=== PATIENT | female | born 1960 | race Caucasian/White ===

== ENCOUNTER 2023-01-17 02:29 | Outpatient (CLI) | payer BC, SELFPAY ==
[2023-01-17 16:48] LABS: Abs Immature Grans 0.03 10^3/uL (0.0-0.06); Absolute Basophil Count 0.04 10^3/uL (0.0-0.2); Absolute Lymphocyte Count 2.24 10^3/uL (1.2-3.4); Absolute Monocyte Count 0.64 10^3/uL (0.1-0.8); Absolute Neutrophil Count 3.43 10^3/uL (1.2-6.7); Basophils % 0.6; HCT 40.9 % (36.0-46.0); HGB 13.3 g/dL (11.2-15.7); Immature Grans % 0.5; MCH 28.2 pg (27.0-33.0); MCHC 32.5 % (32.0-36.0); MCV 87 fL (80-95); MPV 9.1 fL (8.0-11.0); Monocytes % 9.7; Neutrophils % 52.2; Platelet Count 344 10^3/uL (130-400); RBC 4.72 10^6/uL (3.93-5.22); RDW 13.2 % (11.7-14.6); RDW-SD 42.2 fL; WBC 6.58 10^3/uL (4.4-10.8)
[2023-01-17 17:26] LABS: Hemoglobin A1C 5.8 % (<5.7)
[2023-01-17 18:41] LABS: ALT 30 U/L (14-59); AST 21 U/L (15-37); Albumin 3.9 g/dL (3.4-5.0); Alkaline Phosphatase 112 U/L (46-116); Anion Gap 7.6 mmol/L (3-11); BUN 20 mg/dL (7-18); Bilirubin, Total 0.2 mg/dL (0.2-1.0); CO2 28.4 mmol/L (21.0-32.0); CREATININE 0.8 mg/dL (0.55-1.02); Calcium 9.2 mg/dL (8.5-10.1); Calculated LDL 90 mg/dL (<100); Chloride 106 mmol/L (98-107); Cholesterol 195 mg/dL (<200); Estimated GFR 83.26 (mL/min/1.73m2); Glucose 99 mg/dL (74-106); HDL Cholesterol 60 mg/dL (40-60); Potassium 4.4 mmol/L (3.5-5.1); Sodium 142 mmol/L (136-145); TSH (W/Ref FT4) 2.52 uIU/mL (0.36-3.74); Total Protein 6.8 g/dL (6.4-8.2); Triglyceride 226 mg/dL (<150)
== END 2023-01-17 02:30 | disposition home or self-care (01) ==
PROVIDERS: PCP Nurse Practitioner Family; Visit Provider Nurse Practitioner Family
DX: E66.01 Morbid (severe) obesity due to excess calories (principal); R10.9 Unspecified abdominal pain
CPT/HCPCS: 36415; 80053; 80061; 83036; 84443; 85025

== ENCOUNTER 2023-02-15 01:59 | Outpatient (CLI) | payer BC, SELFPAY ==
--- NOTE | 2023-02-15 06:30 | DI.RAD_ITS ---
Exam(s) XR KNEE LT 3V AP,LAT,LILO EXAM: XR KNEE LT 3V AP,LAT,LILO CLINICAL HISTORY: left knee pain,m25.562. TECHNIQUE: 2D digital imaging was performed. Three views. COMPARISON: No exams were available for comparison FINDINGS: BONES: No acute fracture is present. No bony destructive lesion is seen. JOINTS: Moderate narrowing of the medial femoral tibial joint space and mild to moderate periarticula r spurring. Spurring and joint space narrowing also seen of the patellofemoral joint. No joint effu steven is seen. SOFT TISSUE: Normal. IMPRESSION: Moderate degenerative changes of the medial femoral tibial joint and patellofemoral joint. DATA REPOSITORY: RADIATION DOSE DELIVERED:
--- NOTE | 2023-02-15 06:43 | DI.CT_ITS ---
Exam(s) CT ABDOMEN PELVIS W EXAM: CT ABDOMEN PELVIS W CLINICAL HISTORY: Abd pain with hx of lap gastric banding,r10.9,z98.84. TECHNIQUE: Imaging Protocol: Axial computed tomography images with coronal and sagittal reformatted images were created and reviewed CONTRAST MATERIAL: Intravenous: Omnipaque 350 Contrast volume:100 ml Oral: yes / no COMPARISON: No exams were available for comparison FINDINGS: ABDOMEN: Lung Bases: Normal where visualized. Liver: Normal density. Small cyst superior right lobe. No suspicious measurable mass. Gallbladder and biliary tract: No radiodense calculus or dilation. Pancreas: Normal density, no abnormal calcifications or inflammatory process. Spleen: Normal. Kidneys: Normal size, contour and axis. No radiodense stones or obstructive uropathy. Small left kristel al cysts. No further follow-up recommended. No suspicious masses seen. Stomach and small bowel: Sma ll diverticulum of the descending duodenum. Stomach unremarkable. Adrenal glands: No masses seen. Abdominal Aorta: Abdominal portion non-dilated. Soft tissues: 6.5 x 3 by 6.5 cm fatty containing hernia in the midline anterior abdominal wall above the level of the umbilicus. 2.3 by 3.2 centimeter defect in the abdominal wall. PELVIS: Bladder: No gross wall thickening. No calculi.No focal mass. Large bowel: No obstruction. No bowel wall thickening. Appendix normal. Normal quantity of stool. Peritoneal cavity: No ascites, collection or mesenteric inflammatory response. Bones: Posterior fusion hardware L5-S1. Hemangioma L3. Degenerative disc changes L2-3 and L4-5. Reproductive organs: Within normal limits. Lymph nodes: Unremarkable. Impression: Fatty containing midline upper abdominal wall hernia. RADIATION DOSE DELIVERED: 1,323.49mGy.cm Total DLP DATA REPOSITORY: All CT scans at this facility are submitted to the National Radiology Data Registry (NRDR) Dose Index Registry (DIR) with the [employer] ([employer]). RADIATION OPTIMIZATION: All CT scans at this facility use at least one of these dose optimization te chniques: automated exposure control; mA and/or kV adjustment per patient size (includes targeted exa ms where dose is matched to clinical indication); or iterative reconstruction.
[2023-02-15] MEDS: Barium Sulfate 2% W/V-Berry Smoothie 450 ML BTL PO (08:17)
[2023-02-15] MEDS: Omnipaque 350 MG/ML 100 ML BTL IJ (10:07)
[2023-02-15] MEDS: Normal Saline - Diluent 50 ML VIAL IJ (10:07)
== END 2023-02-15 02:19 ==
LOC: DI 01:59
PROVIDERS: PCP Nurse Practitioner Family; Visit Provider Nurse Practitioner Family
DX: R10.9 Unspecified abdominal pain (principal); Z98.84 Bariatric surgery status; M25.562 Pain in left knee
CPT/HCPCS: 73562; 74177; J3490

== ENCOUNTER 2023-04-18 01:35 | Outpatient (CLI) | payer BC, SELFPAY ==
--- NOTE | 2023-04-18 06:45 | DI.MAMMO_ITS ---
Exam(s) MAMMO SCREENING EXAM: MAMMO SCREENING CLINICAL HISTORY: screening,z12.39 TECHNIQUE: Mammograms were interpreted according to the usual protocol including computer analysis w [employer] CAD system, tomosynthesis and C-view imaging. COMPARISON: 2018 through 2021 from [facility] FINDINGS: The breasts are composed of mainly fatty density , Breast Density category A. No suspicious masses or suspicious microcalcifications are seen. No skin thickening or abnormal axillary lymph nodes are seen. There has been no significant change from prior exams. IMPRESSION: BI-RADS Category 1, Negative mammogram Yearly screening mammography is recommended. Breast Density - Category A, fatty density. A negative radiographic report should not delay biopsy if a dominant or clinically suspicious mass is present. Up to ten percent of cancers are not identified on mammography. A negative report may reinforce clinical impression. Adenosis and dense breasts may obscure an underlying neoplasm. False positive reports average 6 to 10%. Patient will receive a letter notifying them of these results.
== END 2023-04-18 01:55 ==
LOC: DI 01:35
PROVIDERS: PCP Nurse Practitioner Family; Visit Provider Nurse Practitioner Family
DX: Z12.31 Encounter for screening mammogram for malignant neoplasm of breast (principal)
CPT/HCPCS: 77063; 77067

== ENCOUNTER 2023-08-04 10:15 | Outpatient (CLI) | payer BC, SELFPAY ==
--- NOTE | 2023-08-04 10:57 | DI.RAD_ITS ---
Exam(s) XR STANDING ALIGNMENT EXAM: XR STANDING ALIGNMENT CLINICAL HISTORY: PRE OP L TKA. TECHNIQUE: 2D digital imaging was performed. Standing AP views were performed from the pelvis throu gh the ankles. COMPARISON: CR XR KNEE LT 3V AP,LAT,LILO from 02/15/2023 FINDINGS: BONES: No acute fracture is present. No bony destructive lesion is seen. Leg length discrepancy: JOINTS: Knees: The left knee shows moderate joint space narrowing. Mild periarticular spurring. M ild joint space narrowing of the medial femoral tibial joint of the right knee. The ankle joints are unremarkable. The hip joints show mild degenerative changes. SOFT TISSUE: Skin calcifications bilateral lower legs, right greater than left. IMPRESSION: Degenerative changes of the left knee. No significant leg length discrepancy. DATA REPOSITORY: RADIATION DOSE DELIVERED:
== END 2023-08-04 10:16 | disposition home or self-care (01) ==
LOC: DIORS 10:16
PROVIDERS: PCP Nurse Practitioner Family; Referring Provider Nurse Practitioner Family; Visit Provider Student in an Organized Health Care Education/Training Program
DX: M17.12 Unilateral primary osteoarthritis, left knee (principal)
CPT/HCPCS: 77073

== ENCOUNTER 2023-08-04 19:09 | Outpatient (CLI) | payer BC, SELFPAY ==
[2023-08-04 12:17] LABS: HGB 13.9 g/dL (11.2-15.7); MCH 27.5 pg (27.0-33.0); MCHC 32.3 % (32.0-36.0); MCV 85 fL (80-95); MPV 9.1 fL (8.0-11.0); Platelet Count 342 10^3/uL (130-400); RBC 5.05 10^6/uL (3.93-5.22); RDW 13.2 % (11.7-14.6); RDW-SD 41.1 fL; WBC 6.93 10^3/uL (4.4-10.8)
[2023-08-04 12:33] LABS: Anion Gap 9.4 mmol/L (3-11); BUN 21 mg/dL (7-18); CO2 23.6 mmol/L (21.0-32.0); CREATININE 0.7 mg/dL (0.55-1.02); Calcium 9.8 mg/dL (8.5-10.1); Chloride 105 mmol/L (98-107); Estimated GFR 97.72 (mL/min/1.73m2); Glucose 107 mg/dL (74-106); Potassium 4.5 mmol/L (3.5-5.1); Sodium 138 mmol/L (136-145)
[2023-08-07 08:43] LABS: Hepatitis C Ab w Rflx HCV PCR Negative (Negative)
== END 2023-08-04 19:10 | disposition home or self-care (01) ==
LOC: LOS 19:10
PROVIDERS: PCP Nurse Practitioner Family; Visit Provider Student in an Organized Health Care Education/Training Program
DX: Z11.59 Encounter for screening for other viral diseases (principal); M17.12 Unilateral primary osteoarthritis, left knee; Z01.818 Encounter for other preprocedural examination
CPT/HCPCS: 36415; 80048; 85027; 86803

== ENCOUNTER 2023-08-29 08:48 | Observation (INO) | payer BC, SELFPAY ==
[2023-08-29] VITALS (10 sets, daily range): BP systolic 103–146; BP diastolic 49–77; PULSE 59–81; RESP 11–18; TEMP 35.7–37; O2SAT 93–99; BMI 43.7
[2023-08-29] MEDS: Acetaminophen 500 MG TAB 1000 MG PO ×3 (10:52→21:55)
[2023-08-29] MEDS: Gabapentin 300 MG CAP PO ×2 (10:53→21:56)
[2023-08-29] MEDS: Celecoxib 200 MG CAP 400 MG PO (10:54)
--- NOTE | 2023-08-29 10:58 | ANES.PREOP_ITS ---
General Info Date of Service Date Performed: 08/29/23 Height: 5 ft 2.75 in Weight: 111.1 kg Body Mass Index (BMI): 43.7 Surgical Procedure: Operation Date: 08/29/23 13:25 Proposed Procedure Side Surgeon p Knee Total Arthroplasty, Cementless CR Left J Carlos Stallworth MD Meds Allergies and Home Medications Allergies Allergy/AdvReac Type Severity Reaction Status Date / Time No Known Allergies Allergy Verified 08/29/23 10:25 Home Medication Medication Instructions Recorded triamcinolone acetonide 55 mcg 1 spray intranasal BID 01/12/23 nasal spray aerosol (Nasacort Allergy) albuterol sulfate 90 mcg/actuation 2 puff inhalation QID PRN 01/13/23 aerosol inhaler ascorbic acid (vitamin C) 1,000 mg 1 g PO DAILY 01/13/23 tablet multivitamin-ferrous 1 tab PO DAILY 01/13/23 fumarate-folic acid 18 mg-400 mcg tablet (Centrum Women) calcium carb-ergocalciferol (vit 2 tab PO DAILY 03/01/23 D2) 500 mg-125 unit tablet desloratadine 5 mg tablet 5 mg PO DAILY PRN allergies #90 03/02/23 (Clarinex) tabs guaifenesin 400 mg tablet 400 mg PO Q6H PRN 08/28/23 acetaminophen 500 mg tablet 1,000 mg (2 x 500 mg) PO Q8H PRN 08/29/23 pain #90 tabs aspirin 81 mg tablet,delayed 81 mg PO BID 30 days #60 tabs 08/29/23 release celecoxib 200 mg capsule (Celebrex) 200 mg PO BID PRN #60 caps 08/29/23 celecoxib 200 mg capsule (Celebrex) 200 mg PO DAILY 08/29/23 dexamethasone 4 mg tablet 4 mg PO DAILY #1 tab 08/29/23 docusate sodium 100 mg capsule 100 mg PO BID #30 caps 08/29/23 (Colace) gabapentin 300 mg capsule 300 mg PO QHS #14 caps 08/29/23 oxycodone 5 mg tablet 5 mg PO Q4H PRN #18 tabs 08/29/23 pantoprazole 40 mg tablet,delayed 40 mg PO DAILY #14 tabs 08/29/23 release Current Visit Medications: Current Medications Generic Name Dose Route Start Last Admin Trade Name Freq PRN Reason Stop Dose Admin Acetaminophen 1,000 mg 08/29/23 06:00 08/29/23 10:52 Acetaminophen 500 Mg Tab PO 08/29/23 16:00 1,000 mg PREOP NASRIN Administration Acetaminophen 1,000 mg 08/29/23 14:00 Acetaminophen 500 Mg Tab PO 09/28/23 13:59 TID NASRIN Albuterol Sulfate 2 puff 08/29/23 08:50 Albuterol Hfa 8 Gm 60 Puff Inh IH 09/28/23 08:49 QID PRN PRN Aspirin 81 mg 08/29/23 20:00 Aspirin E.C. 81 Mg Tabec PO 09/28/23 19:59 BID NASRIN Celecoxib 400 mg 08/29/23 06:00 08/29/23 10:54 Celecoxib 200 Mg Cap PO 08/29/23 16:00 400 mg PREOP NASRIN Administration Celecoxib 200 mg 08/29/23 20:00 Celecoxib 200 Mg Cap PO 09/28/23 19:59 BID NASRIN Device 1 each 08/29/23 09:00 Inhaler, Assist Device 09/28/23 08:59 DIRECTED [facility] Dexamethasone 4 mg 08/30/23 08:30 Dexamethasone 4 Mg Tab PO 08/31/23 08:31 DAILY [facility] Docusate Sodium 100 mg 08/29/23 08:48 Docusate Sodium 100 Mg Cap PO 09/28/23 08:47 BID PRN PRN Constipation Gabapentin 300 mg 08/29/23 06:00 08/29/23 10:53 Gabapentin 300 Mg Cap PO 08/29/23 16:00 300 mg PREOP NASRIN Administration Gabapentin 300 mg 08/29/23 22:00 Gabapentin 300 Mg Cap PO 09/28/23 21:59 HS NASRIN Hydromorphone HCl 0.5 mg 08/29/23 08:48 Hydromorphone 2 Mg/Ml Syr IVP 09/28/23 08:47 Q2H PRN PRN Tranexamic Acid 1,000 mg/ 60 mls @ 360 mls/hr 08/29/23 06:00 Sodium Chloride IVPB 08/29/23 16:00 PREOP NASRIN Ringer's Solution 1,000 mls @ 80 mls/hr 08/29/23 06:00 IV 09/27/23 23:59 INFUSION NASRIN Cefazolin Sodium/Dextrose 2 gm in 50 mls @ 100 mls/hr 08/29/23 06:00 Ancef Duplex IVPB 09/27/23 23:59 PREOP NASRIN Cefazolin Sodium/Dextrose 1 gm in 50 mls @ 100 mls/hr 08/29/23 10:00 Ancef Duplex IVPB 08/30/23 02:29 Q8H NASRIN IV Miscellaneous Supplies 1 each 08/29/23 06:00 Iv Access IV 09/27/23 23:59 DIRECTED NASRIN Non-Formulary Medication 1 gm 08/30/23 08:30 Ascorbic Acid (Vitamin C) PO 09/29/23 08:29 DAILY NASRIN Non-Formulary Medication 2 tab 08/30/23 08:30 Calcium Carbonate-Vitamin D2 PO 09/29/23 08:29 DAILY NASRIN Non-Formulary Medication 5 mg 08/29/23 08:50 Desloratadine [Clarinex] PO DAILY PRN allergies Non-Formulary Medication 1 tab 08/30/23 08:30 Oqngnbvvhoxk-Cilo-Fgasv Acid [Centrum Women] PO 09/29/23 08:29 DAILY NASRIN Non-Formulary Medication 400 mg 08/29/23 08:50 Guaifenesin PO Q6H PRN Non-Formulary Medication 1 spray 08/29/23 20:00 Triamcinolone Acetonide [Nasacort Allergy] MYRTLE 09/28/23 19:59 BID NARSIN Ondansetron HCl 4 mg 08/29/23 08:48 Ondansetron 4 Mg/2 Ml Vial IVP 09/28/23 08:47 Q6H PRN PRN Nausea Oxycodone HCl 0 mg 08/29/23 08:48 Oxycodone 5 Mg Tab PO 09/28/23 08:47 Q3H PRN PRN Pain Pantoprazole Sodium 40 mg 08/30/23 07:30 Pantoprazole 40 Mg Tabcr PO 09/29/23 07:29 DAILY@0730 NASRIN Polyethylene Glycol 17 gm 08/29/23 08:48 Polyethylene Glycol 3350 17 Gm Packet PO 09/28/23 08:47 BID PRN PRN Constipation Sodium Chloride 0 ml 08/29/23 06:00 Normal Saline Flush 10 Ml Syr IV 09/27/23 23:59 PRN PRN Sodium Chloride 0 ml 08/29/23 06:00 Normal Saline 10 Ml Vial IJ 09/27/23 23:59 DIRECTED PRN Sterile Water 0 ml 08/29/23 06:00 Water,Injection,Sterile 10 Ml Vial IJ 09/27/23 23:59 DIRECTED PRN PFSH Active Problems Active Problems: Problem Status Onset Code Abdominal wall hernia K43.9 Prediabetes R73.03 IBS (irritable bowel syndrome) K58.9 Osteoarthritis of left knee M17.12 Tear of medial meniscus of left knee S83.242A Obesity, Class III, BMI 40-49.9 (morbid obesity) E66.01 Osteoarthritis M19.90 Migraine G43.909 Varicose veins of legs I83.93 Allergic rhinitis J30.9 Medical History Medical History Rectocele Reactive airway disease Urinary, incontinence, stress female Depression Anemia Surgical History Surgical History Hx of endoscopy Hx of plastic surgery neck History of bilateral tubal ligation Hx of spinal fusion (08/30/21) L4-S1 S/P trigger finger release Hx of cystoscopy (02/13/13) Anterior repair, urethrotomy with repair, rectocele repair, cystoscopy. Hx of section History of lateral meniscus repair of right knee medial Hx of tonsillectomy Hx of laparoscopic gastric banding (07/09/05) has had the band removed History of anterior colporrhaphy (02/13/13) Hx of colonoscopy (09/26/08) Tobacco Smoking/Tobacco Use Status: Never Passive smoking exposure: Yes Second hand exposure: Yes Alcohol Alcohol Intake: current Alcohol intake frequency: a few times a month Alcohol type: beer Substance Use Substance use: Never Substance use type: does not use Details: alcohol: t-7, one week Vital Signs and Lab Results Vital Signs Most Recent Vital Signs in EMR: Most Recent Vital Signs Temp Pulse Resp BP Pulse Ox 37.0 C 81 18 146/77 H 94 08/29/23 10:41 08/29/23 10:41 08/29/23 10:41 08/29/23 10:41 08/29/23 10:41 Lab Results Blood Type / Crossmatch: No Data to Display Complete Blood Count: White Blood Count 6.93 10^3/uL (4.4-10.8) 08/04/23 11:32 Red Blood Count 5.05 10^6/uL (3.93-5.22) 10/13/23 11:32 Hemoglobin 13.9 g/dL (11.2-15.7) 08/04/23 11:32 Hematocrit 43.0 % (36.0-46.0) 08/04/23 11:32 Platelet Count 342 10^3/uL (130-400) 08/04/23 11:32 Complete Metabolic Panel: Sodium 138 mmol/L (136-145) 08/04/23 11:32 Potassium 4.5 mmol/L (3.5-5.1) 08/04/23 11:32 Chloride 105 mmol/L (98-107) 08/04/23 11:32 Carbon Dioxide 23.6 mmol/L (21.0-32.0) 08/04/23 11:32 BUN 21 mg/dL (7-18) H 08/04/23 11:32 Creatinine 0.7 mg/dL (0.55-1.02) 08/04/23 11:32 Est GFR (CKD-EPI 2020) 97.72 (mL/min/1.73m2) 08/04/23 11:32 Calcium 9.8 mg/dL (8.5-10.1) 08/04/23 11:32 Glucose 107 mg/dL (74-106) H 08/04/23 11:32 Liver Function Panel: No Data to Display Coagulation Panel: No Data to Display Cardiac Panel: No Data to Display Arterial Blood Gas: No Data to Display Venous Blood Gas: No Data to Display Pancreas Panel: No Data to Display Thyroid Panel: No Data to Display Infectious Disease: Hepatitis C Antibody Negative (Negative) 08/04/23 11:32 Blood Cultures: No Data to Display Toxicology Panel: No Data to Display Anesthesia Assessment and Plan Anesthesia History Personal History: No History of Anesthesia Complications Family History: No Family History of Anesthesia Complications Exercise Tolerance Exercise Tolerance: Metabolic Equivalents>4 Pertinent Negatives Pertinent Negatives: No Major Cardiovascular Symptoms or Complaints, No Major Pulmonary Symptoms or Complaints and No History of CVA/TIA Cardiac & Pulmonary Exam Cardiac Exam: Normal S1/S2 Heart Sounds Pulmonary Exam: Clear Bilateral Breath Sounds Implantable Cardiac Device Does patient have a Pacemaker or an ICD?: No Airway Exam Known Difficult Airway: No Mallampati Class: 2 Mouth Opening: Normal (> 3cm) Thyromental Distance: Greater than 3 cm Neck Range of Motion: Full ROM Neck Circumference: Normal Teeth Condition: Normal Dentition ASA Classification ASA Score: ASA 3 Emergency Case?: No NPO Status NPO Status: NPO Clears >2 hours, Solids >8 hours Anesthesia Plan Resuscitation Status: Full Code Anesthesia Technique: Spinal Anesthesia Airway Planned: Natural Airway Monitors Used: Standard Monitors
[2023-08-29] MEDS: Lactated Ringers 1,000 ML 80 ML IV ×2 (11:16→16:01)
[2023-08-29] MEDS: ceFAZolin 2 GM/50 ML BAG IVPB (12:30)
--- NOTE | 2023-08-29 12:56 | W.ANESNERVE ---
Nerve Block Single Injection Procedure Date and Time Date Performed: 08/29/23 Procedure Start: 11:34 Location Where Procedure Performed Procedure Location: Day Surgery Unit Reason Performed: Postoperative Analgesia Requesting Provider: J Carlos Stallworth Timeout Performed Timeout Performed: Yes Monitoring Used ECG, Blood Pressure, SpO2 and ETCO2 Sterility Sterility: Hand Hygiene, Surgical Cap, Surgical Mask, Sterile Gloves and Chlorhexidine Sedation Given During Procedure Sedation Given (Indicate Dose Given): No Sedation given Patient Mental Status Patient Mental Status: Awake Nerve Block 1st Nerve Block: Laterality: Left Block Type: Adductor Canal Ultrasound Image Saved?: Yes Needle / Catheter Used: 100mm SonoPlex II Local Anesthetic Bolus (Indicate Dose Given): Lidocaine used for local infiltration of skin, Injected in 3-5ml increments after negative blood aspiration and Bupivacaine 0.25% Dose:: 20 ml Additives (Indicate Dose Given): Normal Saline Ultrasound: Sterile probe cover and gel used Nerve Stimulator: Not Used Paresthesia: Left Paresthesia Duration: Transient Post Procedure Pain score (0-10): 4 Procedure Tolerated: No Complications and Patient tolerated well Procedure Outcome: Successful Performed By: Charan Castro
--- NOTE | 2023-08-29 13:50 | ROE_ITS ---
Date of service: 08/29/23 Time of Service: 12:30 Operative Note Operative Note DATE OF PROCEDURE: 08/29/23 PRE-OP DIAGNOSIS: Left Knee Osteoarthritis POST-OP DIAGNOSIS: same PROCEDURE: Left Total Knee Replacement SURGEON: J Carlos Stallworth EMD SPECIAL EDUCATION TEACHER: Sujatha Hull ANESTHESIA TYPE: Spinal Refer to Anesthesia Record ESTIMATED BLOOD LOSS: 150 PATHOLOGY: none sent TOURNIQUET TIME: 0 COMPLICATIONS: None Patient was transported to: PACU Patient's condition: stable Implants: 1. Depuy Attune Cementless Cruciate Retaining Femoral Component, Size 5 2. Depuy Attune Cementless Fixed Bearing Tibial Component, Size 4 3. Depuy Attune 5x6mm CR/FB Poly 4. Depuy Attune Patellar Component, Size 35 Indications: I have seen Tressa in clinic for symptoms of knee arthritis, confirmed with radiographic findings. She has exhausted nonoperative methods and was having significant limitations in daily function and desired better function and less pain. I discussed the technical details of a knee replacement. I explained the risks of the procedure to include, but not limited to, bleeding, infection, pain, stiffness, fracture, damage to nerves and vessels, damage to muscles and tendons, loosening, need for repeat procedure, blood clot and cardiopulmonary d emise. Despite these risks, Tressa elected to proceed. Findings: There was significant signs of arthritis throughout the knee. Procedure Description: Tressa was greeted in the preoperative holding area where the correct side was identified and marked. The consent was reviewed with the patient and signed. The history and physical was updated. All questions were answered. Preoperative medications were administered: Acetaminophen 1000mg, Celebrex 400mg, and Gabapentin 300mg. An adductor canal block was then administered by the anesthesia team in the PACU. Tressa was taken back to the operating room. A spinal anesthetic was attempted but was unfortunately not successful and thus converted to a general anesthetic. The patient was placed into the supine position on the operating room table. A nonsterile tourniquet was placed high onto the leg but only used for cementing. Posts were placed for positioning during the procedure. All bony prominences were well padded. Prophylactic antibiotics in the form of Cefazolin were administered. 1g of Tranxemic Acid was given intravenously wit hin 30 minutes of incision. The left leg was then prepped with Chloraprep and draped in a standard fashion with impervious stockinette. A second prep with Chloraprep was performed prior to application of Iodine impregnated skin protection. A timeout to confirm correct identity, side and site, procedure, allergies, anesthesia, and medical concerns was performed. With the knee in some flexion, a midline incision was made overlying the knee. Full thickness skin flaps were raised once the extensor mechanism was encountered. These were raised medially and laterally. Any bleeding was controlled with electrocautery. Once the extensor mechanism was fully exposed, a medial parapatellar arthrotomy was performed in a flexed position. All bleeding from the arthrotomy and the geniculate arteries was coagulated. A medial subperiosteal peel was performed with electrocautery to the midcoronal plane. The fat pad was removed while keeping the patellar tendon protected. The anterior distal femur synovium was removed for later visualization. The ACL and PCL were resected and the anterior horn of the lateral meniscus was transected. The knee was then flexed with the patella everted. Large osteophytes from the tibia were removed. Large osteophytes from the femur were removed. Using a step drill, and based on preoperative templating, the femoral canal was entered. This was done with a step drill without any difficulty. The intramedullary distal femoral cut guide was inserted, set to a 5 degree valgus cut and 9mm cut thickness. The distal femoral cut guide was then held in position and pinned. With the soft tissues protected, the distal cut was performed. This was passed over a few times to ensure a planar cut. I then turned attention to the tibia. The extramedullary guide was placed onto the leg. The distal aspect was slid medial to adjust for position of center of ankle and stay in line with shaft of the tibia. Approximately 3-5 degrees of posterior slope was kept in the proximal cutting guide. The center of the guide was aligned with the PCL. The stylus was used to assess cut thickness. The medial side, most involved side, was set for a 4mm cut. This was then held in position and pinned into place with 2 additional pins and a cross pin for stability. The medial and lateral collateral ligaments were protected and the cut was performed. With this completed, it was assessed and noted to be of appropriate dimensions. The guide was removed. A spacer block was inserted and the knee was brought into extension. The 6mm spacer block provided full extension, without hyperextension and with stability of both the medial and lateral collateral ligaments was assessed. The pins from the femur and the tibia were then removed. The distal femur was then sized. The anterior stylus was placed onto the lateral ridge of the anterior femur. This indicated a size 5 femur. The external rotation of the guide was adjusted to 3 degrees to match the e picondylar axis, perpendicular to Sondra?s line. The 4-in-1 cutting guide was the placed. The posterior medial femur cut was evaluated and appeared of good thickness. The spacer block was inserted underneath the cutting guide and stability was confirmed in 90 degrees of flexion. An samantha wing was used to confirm appropriate position of the anterior cut to avoid notching. This cutting guide was ensured to be flush on the cut surface and then pinned into place with headed pins. While protecting the soft tissues, quad tendon, and collateral ligaments, the anterior and posterior cuts were performed with a saw. The central two pins were removed and the posterior and anterior chamfers were cut next. The notch-cutting guide was placed. This was pinned to lateralize the femoral component as much as possible while keeping it flush on the cut surface. This was then pinned into position. A reciprocating saw was used to make the notch cut. A rasp smoothed the cut surfaces. The medial and lateral menisci were removed. A trial femoral component was then inserted, impacted down to the cut surfaces, and the lug holes were drilled. A provisional trial tibial component was placed and the knee was brought through range of motion. There was noted to be excellent extension and flexion. There was no significant instability. The patella was tracking without thumbs. A size 6mm polyethylene component provided the best range of motion and stability with less than 2mm gapping with medial and lateral stress and full extension without significant hyperextension. The tibial cut surface was fully exposed. The tibia was then sized as a 4. The tibia had been previously marked during trialing to correspond to the center of the tibial component to help with rotation. The trial was aligned to this héctor, approximately rotated to the medial 1/3rd of the tibial tubercle. The trial was pinned into place. The tibia was prepared with a reamer and a keel punch and lug holes. The knee was then brought into extension and the patella was measured as 23mm. Using the patellar clamp and cut guide, this was resected to a flat surface with at least 13mm of thickness remaining. The size 35 patella fit the best. This was oriented and then clamped into position. The lugs were drilled. The trial components were removed. The final components were opened on the back table. The periosteal and capsular tissues, especially posteriorly, around the knee were then systematically injected with a periarticular cocktail consisting of 246mg of Ropivacaine, 0.5mg of Epinephrine, 0.08mg of Clonidine, and 30mg of Ketorolac, diluted to 100cc. On the back table, with the implants opened, the cement was mixed. One batch of high viscosity cement was prepared with vacuum assistance. After the cement was ready a small amount was placed on the cut surface of the patella and the patellar button was clamped into position and held. While the cement was hardening, the cementless knee components were placed. Starting with the tibial component, the tibia was subluxed anteriorly and the lug holes of the component were lined up. The tibia was then impacted with an impactor and mallet until the tibial component was in contact with the tibia. The final polyethylene component was inserted. Then, the femoral component was inserted. The lug holes were aligned and the component was impacted into position. The knee was irrigated with Surgiphor Betadine solution. This was allowed to sit in the knee for 3 minutes and then it was irrigated out with saline. After the cement had finally cured, approximately 15min, the clamp was removed from the patella and the knee was taken through range of motion. The patella was tracking with a no-thumbs technique. However, there was some mild tilt and some tightness of the lateral soft tissues. Therefore, I performed a lateral capsular slide, releasing some of the external capsular tissues in a partial- thickness fashion and likewise releasing some the internal capsular tissues in a partial-thickness fashion. The capsule was then reapproximated with a No. 1 Vicryl at multiple locations. The capsule was finally closed with a No. 2 Stratafix, barbed suture. The second dosing of 1g TXA was started. Deep tissues were then reapproximated with 0 Vicryl and 2-0 Vicryl. The skin was closed with a running 3-0 Monocryl in a subcuticular fashion. This was reinforced with skin glue. A Mepilex silver dressing was applied along with a [id number] JOSE MARIA wrap. A CryoCuff was applied. Tressa was transferred to the hospital bed without difficulty an suffering no apparent complication. Tressa has a good prognosis. Physical therapy will start today and without restrictions, weight-bearing as tolerated. Aspirin 81mg BID will be used for DVT prophylaxis.
--- NOTE | 2023-08-29 15:21 | W.ANESPOSTOP ---
Postoperative Evaluation Date, Time and Location Date Performed: 08/29/23 Time Performed: 14:58 Patient Location: PACU Vital Signs Most Recent Imported Vital Signs: Most Recent Vital Signs Temp Pulse Resp BP Pulse Ox 36.5 C 62 11 L 113/49 L 98 08/29/23 14:48 08/29/23 14:48 08/29/23 14:48 08/29/23 14:48 08/29/23 14:48 Pain Score Most Recent Pain Score: Most Recent Pain Score Pain Level 2 08/29/23 14:48 Assessment Mental Status: Awake (Alert & Oriented to Patient Baseline) Airway and Respiratory Function: Patent airway with normal (patient baseline) respiratory exam Cardiovascular Function: Hemodynamically Stable Hydration Status: Adequately Hydrated Nausea & Vomiting: No Nausea or Vomiting Pain: Pt. Denies Any Pain Peripheral Nerve Block: Patient did not receive a nerve block
[2023-08-29] MEDS: ceFAZolin 1 GM/50 ML BAG IVPB (16:05)
--- NOTE | 2023-08-29 17:10 | PT.INIE ---
Date of service: 08/29/23 Time of Service: 17:10 PT Notes Visit Reasons: Left knee DJD Physical Therapy Inpatient Initial Evaluation Date: 08/30/2023 Referring Doctor: BARBARA Lawson PT Orders: PT CONSULT: S/P Ortho Surgery Precautions: Fall. Standard. Activity as tolerated. Patient Profile/Admitting Diagnosis: Tressa is a 62-year-old female with degenerative joint disease of the left knee and is status post left total knee arthroplasty on postoperative day 0. PMHX: Medical History Anemia Depression Reactive airway disease Rectocele Urinary, incontinence, stress female Surgical History History of anterior colporrhaphy (02/13/13) History of bilateral tubal ligation History of lateral meniscus repair of right knee medialHx of section Hx of colonoscopy (09/26/08) Hx of cystoscopy (02/13/13) Anterior repair, urethrotomy with repair, rectocele repair, cystoscopy. Hx of laparoscopic gastric banding (07/09/05) has had the band removed Hx of spinal fusion (08/30/21) L4-S1Hx of tonsillectomy S/P trigger finger release Social History/Home Situation: Lives alone in a private home. Independent with all aspects of ADLs prior to surgery. Equipment Owned/DME: [employer] Subjective: Complained of being lightheaded with sitting up. Pain in L knee at 6/10 but was agreeable to trying out how far she could go with walker. Nurse Mariaa stated having given patient Tyleonol earlier today; she also clarified that supper has been ordered for patient already. Objective: General Observation: Supine in bed. IV through R UE. JOSE MARIA wraps to L LE. Cryocuff to L knee. Mental Status: Alert and oriented as to person, place, time, and purpose. Able to pay attention, focus, and respond appropriately. Pain: As above Vital Signs: [place] monitored by [facility] staff ROM: Right Lower Extremity: Hip flexion WFL. Hip abduction WFL. Knee flexion WFL. Ankle dorsiflexion WFL. Ankle plantarflexion WFL. Left Lower Extremity: Hip flexion WFL. Hip abduction WFL. Knee flexion 30 degrees to 90 degrees. Knee extension -30 degrees. Ankle dorsiflexion WFL. Ankle plantarflexion WFL. Strength: Right Lower Extremity: Hip flexors 5/5. Hip abductors 5/5. Knee flexors 5/5. Knee extensors 5/5. Ankle dorsiflexors 5/5. Ankle plantarflexors 5/5. Left Lower Extremity: Hip flexors 4/5. Hip abductors 4/5. Knee flexors 3-/5. Knee extensors 3-/5. Ankle dorsiflexors 4/5. Ankle plantarflexors 4/5. Bed Mobility/Transfers: Supine to sit with stand by assist with cues provided for slower movement to minimize lightheadedness and for use of B UE for support Sit to stand stand by assist with cues provided for slower movement to minimize lightheadedness and for use of B UE for support Stand to sit stand by assist with cues provided for slower movement to minimize lightheadedness and for use of B UE for support Bed to toilet seat stand by assist with cues provided for slower movement to minimize lightheadedness and for use of B UE for support Toilet seat to bed stand by assist with cues provided for slower movement to minimize lightheadedness and for use of B UE for support Toilet seat to reclining stand by assist with cues provided for slower movement to minimize lightheadedness and for use of B UE for support Gait: Facilitated safe and correct performance of in room ambulation using front-wheeled walker with step to heel-toe gait pattern requiring standby assist and minimal verbal cueing for movement sequence, limb advancement, and AD management Balance: Static Sitting: Normal Dynamic Sitting: Normal Static Standing: Fair Dynamic Standing: Fair Special Tests: Mobility Limitations Standardized Measure [facility] 6 clicks Basic Mobility Inpatient Short Form: Raw Score: 23 CMS Score: 11% deficit Informed Consent/Education: Patient was instructed in purpose of PT consult and plan of care. Agreeable to proceed with established PT POC to achieve personal goals. ASSESSMENT: Patient requires the use of a front wheel walker for all mobility ADL performance to maximize independence and reduce fall risk. Pain and lightheadedness minimally limited today's performance. Will ensure premedication for pain in the next sessions. Patient presents with clinical signs and symptoms consistent with current/admitting diagnoses that have resulted to mobility limitations, gait instability, generalized weakness, and overall ADL decline as demonstrated by the following impairment level findings: 1. Decreased strength to L knee major muscle groups 2. Impaired sitting/standing balance 3. Impaired activity tolerance 4. Limitation of joint range of motion in L knee 5. Pain in L knee at 6/10 Impairments are contributing to the following functional limitations: 1. Decline in bed mobility skills 2. Decline in transfer skills 3. Difficulty with ambulation without assistive device 4. Increased completion time for mobility ADL performance 5. Increased risk for falls 6. Difficulty with managing steps alone safely Patient is assessed as a 51741 moderate complexity based on the following: History: 62-year-old female with past medical history as indicated above Examination: Demonstrable impairment in strength, balance, and mobility level with underlying impairments and functional limitations as exhibited above as well as deficit score of 11% utilizing the [facility] Mobility Inpatient Short Form Presentation: Evolving Decision Makin moderate complexity Goals: Goals X1 week 1. Supine-Sit independent 2. Sit-Supine independent 3. Sit-Stand independent 4. Stand-Sit independent with FWW 5. Bed-Chair independent with FWW 6. Chair-Bed independent with FWW 7. Independent gait on level surface with use of FWW for at least 300 feet without report of pain nor dyspnea 8. Independent stair negotiation while holding onto B rails for at least 3 steps without report of pain nor dyspnea 9. Independent with home exercise program 10. Good static and dynamic standing balance/tolerance Plan of Care/Treatment Plan: 1-2x/day, 7 days/week x 1 week. Plan of care has been reviewed with the [employer] providing the service under Physical Therapy direction. Initiate Physical Therapy intervention for pain management as needed, strengthening, bed mobility, transfers, gait, stairs, balance training, and use of assistive device. DISCHARGE RECOMMENDATIONS: Home when medically cleared by orthopedic surgeon. Recommend outpatient PT services in order to optimize functional mobility outcomes and facilitate return to independent community ambulation without an assistive device. TREATMENT CODE/TIME: 9716 2 x 20 minutes for 1 unit, 27855 x 12 minutes for 1 unit beginning at 17:10 PM. Thank you for the opportunity to participate in the care of this patient. Angeles Grossman PT, DPT, CLT [facility] [place], [place]
[2023-08-29] MEDS: Normal Saline Flush 10 ML SYR IV (17:54)
[2023-08-29] MEDS: HYDROmorphone 2 MG/ML SYR 0.5 MG IVP (17:54)
[2023-08-29] MEDS: Ondansetron 4 MG/2 ML VIAL IVP (18:22)
[2023-08-29] MEDS: Celecoxib 200 MG CAP PO (21:56)
[2023-08-29] MEDS: Aspirin E.C. 81 MG TABEC PO (21:56)
[2023-08-30 03:12] VITALS: BP 116/77; PULSE 73; RESP 16; TEMP 36.9; O2SAT 92
[2023-08-30] MEDS: ceFAZolin 1 GM/50 ML BAG IVPB (04:59)
[2023-08-30] MEDS: Aspirin E.C. 81 MG TABEC PO (08:03)
[2023-08-30] MEDS: Pantoprazole 40 MG TABCR PO (08:03)
[2023-08-30] MEDS: Acetaminophen 500 MG TAB 1000 MG PO (08:03)
[2023-08-30] MEDS: Ascorbic Acid 500 MG TAB 1000 MG PO (08:03)
[2023-08-30] MEDS: Celecoxib 200 MG CAP PO (08:04)
[2023-08-30] MEDS: Dexamethasone 4 MG TAB PO (08:04)
[2023-08-30] MEDS: Multivitamin w/Minerals TAB 1 TAB PO (08:04)
[2023-08-30] MEDS: oxyCODONE 5 MG TAB PO (08:08)
[2023-08-30 08:39] VITALS: BP 108/63; PULSE 82; RESP 16; TEMP 37.3; O2SAT 94
--- NOTE | 2023-08-30 10:48 | DSE_ITS ---
Date of service: 08/30/23 Time of Service: 10:48 DS: Diagnosis Discharge Diagnosis (1) Osteoarthritis of left knee: Status: Chronic (2) Tear of medial meniscus of left knee: Status: Chronic Discharge Plan Disposition Patient Disposition: Home Condition: Good Discharge Details Reason For Visit: Left knee DJD Admit Date/Time: 08/29/23 08:48 Admit Provider: J Carlos Stallworth Attending Provider: J Carlos Stallworth [facility] Hospital Course: Patient was admitted to the medical/surgical floor following the procedure. The surgery was tolerated well without any notable medical, surgical, or anesthetic complications. Mobilization began postoperatively. She was voiding spontaneously. Vitals were stable. Physical therapy worked with the patient and was cleared for discharge home. No acute medical issues. Pain was controlled on oral regimen. Home Meds and New Rx's Prescriptions: New acetaminophen 500 mg tablet 1,000 mg PO Q8H PRN Qty: 90 0RF Rx Instructions: Take two tablets up to every 8 hours as needed for pain aspirin 81 mg tablet,delayed release (DR/EC) 81 mg PO BID 30 Days Qty: 60 0RF celecoxib [Celebrex] 200 mg capsule 200 mg PO BID PRNQty: 60 0RF Rx Instructions: Take one tablet twice daily for pain and inflammation docusate sodium [Colace] 100 mg capsule 100 mg PO BID Qty: 30 0RF dexamethasone 4 mg tablet 4 mg PO DAILY Qty: 1 0RF Rx Instructions: Take one tablet once daily for one day after discharge pantoprazole 40 mg tablet,delayed release (DR/EC) 40 mg PO DAILY Qty: 14 0RF gabapentin 300 mg capsule 300 mg PO QHS Qty: 14 0RF Rx Instructions: Take one tablet at bedtime oxycodone 5 mg tablet 5 mg PO Q4H PRNQty: 18 0RF Rx Instructions: Take one tablet up to every 4 hours as needed for severe postoperative pain Continued Centrum Women 18-400 mg-mcg tablet 1 tab PO DAILY ascorbic acid (vitamin C) 1,000 mg tablet 1 g PO DAILY calcium carbonate-vitamin D2 500-125 mg-unit tablet 2 tab PO DAILY triamcinolone acetonide [Nasacort Allergy] 55 mcg aerosol,spray 1 spray intranasal BID Rx Instructions: administer into each nostril albuterol sulfate 90 mcg/actuation HFA aerosol inhaler 2 puff inhalation QID PRN desloratadine [Clarinex] 5 mg tablet 5 mg PO DAILY PRN (Reason: allergies) Qty: 90 3RF guaifenesin 400 mg tablet 400 mg PO Q6H PRN Discontinued celecoxib [Celebrex] 200 mg capsule 200 mg PO DAILY Qty: 90 3RF No Action celecoxib [Celebrex] 200 mg capsule 200 mg PO DAILY Discharge Instructions Additional Instructions: Total Knee Discharge Instructions Activity: The most important activity is to walk and to work on gentle motion (both flexion and extension). You should try to take short walks a few times a day. It is important that when resting you work on keeping the knee straight. Avoid putting a pillow behind the knee as this will encourage flexion. Work on range of motion exercises as provided by Physical Therapy. - Start outpatient physical therapy within 2 weeks. - You should wear the NORMA hose on both legs for 2 weeks. You may remove these at night. You may also use any compression sock in place of the NORMA hose. - Utilize [employer] to review exercises, see videos on exercises and obtain basic information pertaining to your surgery and your recovery. Dressing: Keep the surgical dressing in place for at least one week. After the first week it may be removed or left in place. If removed, replace with light gauze and tape. The wound and dressing may get wet after 3 days but avoid soaking the dressing or otherwise it will need to be changed. Many people prefer covering the dressing with cling wrap (saran wrap) to minimize it from getting soaked. If it gets wet, just pat dry. If it starts to peel off then it will need to be changed. Medications: - You should take Tylenol and anti-inflammatory Celebrex as your primary pain control medications. If the Celebrex is too expensive or not covered, please call the office for another alternative (Advil/Ibuprofen or Naproxen/Aleve) - You have been prescribed a stronger pain medication Oxycodone for breakthrough pain, take as needed as prescribed. - You have also been prescribed a stomach acid reduction agent Pantoprozole to help reduce stomach acid and reflux. - You have been prescribed Gabapentin to take at night for restlessness and nerve pain. - You will be taking Aspirin 81mg twice a day for DVT prevention unless instructed otherwise. - You have also been prescribed Decadron to take to control post-operative nausea and pain. You will start this tomorrow. - If you have constipation you should take Colace (which has been prescribed) or Miralax (which is available [id number]). It takes most people 3-4 days to have a bowel movement. Follow-up: 2 weeks If you have any acute concerns or questions, please do not hesitate to contact the office at [phone]. You may contact Dr. Stallworth with any questions after hours through the hospital at [phone] or on his cell phone at [phone]. Referrals: J Carlos Stallworth MD [ [facility] STAFF PHYSICIAN] - Activity:: Activity as Tolerated Equipment/Supplies:: Walker Diet:: As Tolerated Discharge Orders Discharge Orders: Discharge Order (Routine); Ordered 08/30/23 Ordered By: J Carlos Stallworth DS: Summary Time Spent with Patient providing and/or coordinating discharge services: Less than 30 minutes Status at Discharge Functional status at discharge: uses cane/walker Overall status at discharge: patient is progressing back to baseline Mental Status: mental status grossly normal Speech and Movement: speech and movement normal Mood: congruent mood Affect: normal affect Exam Narrative Exam Narrative: Sitting up in the bed. NAD. AAOx3. LLE dressing c/d/i. JOSE MARIA removed. +ADF/APF/EHL/FHL SILT DP/SP/Tib. SOme pain medially in the thigh. Psych Mental Status: mental status grossly normal Speech and Movement: speech and movement normal Mood: congruent mood Affect: normal affect DS: Data Vitals/I&O Vitals and I&O: Intake & Output 08/28/23 08/28/23 08/29/23 11:59 23:59 11:59 Weight 246 lb 0.01 oz PFSH All Active Problems History of total left knee replacement (Acute 08/29/23) Abdominal wall hernia (Chronic) Prediabetes (Chronic) IBS (irritable bowel syndrome) (Chronic) Osteoarthritis of left knee (Chronic) Tear of medial meniscus of left knee (Chronic) Obesity, Class III, BMI 40-49.9 (morbid obesity) (Chronic) Osteoarthritis (Chronic) Migraine (Chronic) Varicose veins of legs (Chronic) Allergic rhinitis (Chronic) Medical History Rectocele Reactive airway disease Urinary, incontinence, stress female Depression Anemia Surgical History Hx of endoscopy Hx of plastic surgery neck History of bilateral tubal ligation Hx of spinal fusion (08/30/21) L4-S1 S/P trigger finger release Hx of cystoscopy (02/13/13) Anterior repair, urethrotomy with repair, rectocele repair, cystoscopy. Hx of section History of lateral meniscus repair of right knee medial Hx of tonsillectomy Hx of laparoscopic gastric banding (07/09/05) has had the band removed History of anterior colporrhaphy (02/13/13) Hx of colonoscopy (09/26/08) Family History Mother , 82 Asthma Hypertension Father , 78 Alcohol use disorder Hypertension Maternal Grandfather Alcohol use disorder Paternal Grandfather No problems noted. Maternal Grandmother Heart disease Breast cancer Paternal Grandmother No problems noted. Sister Hypothyroidism Sister No problems noted. Sister No problems noted. Brother Alcohol use disorder Brother No problems noted. Son No problems noted. Son , 30 Substance use disorder Social History Smoking/Tobacco Use Status: Never Second Hand Exposure: Yes Smoking risk assessment performed?: Yes Alcohol Intake: current Alcohol Intake frequency: a few times a month Alcohol type: beer Drug use: Never Substance use type: does not use Details: alcohol: t-7, one week Caregiver/Support person: No Household members: family Housing: house Communication Needs: None Do you need help understanding health information?: Rarely Pets and animals: No Sexually active: No Do you think of yourself as: straight/heterosexual Current gender identity: female What is your relationship status?: How often do you talk on the phone with friends or family?: three or more times per week How often do you get together with friends or relatives?: three or more times per week How often do you attend orthodoxy or scientology services?: 1-3 times per year Do you belong to any clubs or organized social groups?: yes Panel score (0-1 are the most socially isolated patients): 2 What type of physical activity do you participate in: walking Duration: 15-30 minutes/day Frequency: daily Elda/Restorationist: Jain Special elda needs: No Seatbelt use: always Helmet use: Yes Helmet use: always Drive intox or ride w/intox milk delivery driver: No Do you feel safe at home: Yes Do you feel safe in your relationship?: Yes
--- NOTE | 2023-08-30 10:55 | PTTR_ITS ---
Date of service: 08/30/23 Time of Service: 09:18 PT Notes Visit Reasons: Left knee DJD Inpatient Physical Therapy Treatment Note [facility] Date: 08/30/23 PRECAUTIONS: Fall, standard, activity as tolerated. WBAT LLE with AD. SUBJECTIVE: Patient reports a cramp in her inner thigh, observes that elastic bandage is rolling down and creating an area of increased pressure at the mid thigh. RN Ton alerted to botht the cramp as well as the need to re-wrap upper elastic bandage. OBJECTIVE: Patient supine in bed. Cryo cuff in place. LLE elevated with one pillow running from back of the knee to back of the ankle. ? PAIN: Cramp in adductor group. Left knee pain with weightbearing. VITALS: monitored by nursing staff? ? ? BED MOBILITY/TRANSFERS? Rolling L/R: Independent Supine-sit: Independent ? Sit-supine: Independent ? Sit-stand: Independent ? Stand-sit: Independent ? Bed-Chair: SBA ? Chair-bed: SBA Gait Training ([id number]): Direct one-on-one instruction and skilled instruction in: [x] employing an assistive device [] modified weight-bearing status [x] movement sequencing [x] turning and movement with proper form [x] Provided verbal cues for equipment management and technique [x] Provided instruction in gait pattern [] Patient education regarding pacing and breathing techniques to maximize activity tolerance? GAIT? Assistive Device: FWW? Weight bearing: Full Assist: CGA ? Distance:? 300 feet ? Deviation: Slightly antalgic gait pattern, reduced stance phase LLE, step- to gait pattern on level ground. ? STAIRS: Ascends and descends 4 six inch stairs and 6 four inch stairs with step to pattern, single railing with FWW folded and held in opposite hand to simulate home environment, CGA ? Therapeutic Exercises ([id number]): Direct one-on-one instruction in therapeutic exercises to develop strength, endurance, range of motion and flexibility. ? Exercises: Reviewed HEP as established by DPT Angeles Grossman. Patient demonstrates understanding and ability to perform all of the following: * Heel slides * ankle pumps * quad sets * SLR's * seated marching Patient performs each exercise x10. Tactile and verbal cues provided for appropriate muscle recruitment. Provided skilled instruction in proper exercise performance Provided skilled manual cues to facilitate proper muscle recruitment and/or form. ASSESSMENT:? Patient tolerates therapy well. Returns to bed at end of session. Cryo cuff applied. Call miguel within easy reach. PLAN: Continue global strengthening per plan of care until patient is medically cleared for discharge. TREATMENT CODE/TIME: 62 minutes beginning at 9:18
[2023-08-30 11:35] VITALS: BP 107/71; PULSE 72; RESP 18; TEMP 37.2; O2SAT 96
== END 2023-08-30 13:09 | disposition home or self-care (01) ==
LOC: MS 08-30 08:03 → SUR 08-30 08:04 → MS 08-30 08:04
PROVIDERS: Admitting Provider Student in an Organized Health Care Education/Training Program; PCP Nurse Practitioner Family; Visit Provider Student in an Organized Health Care Education/Training Program
PROC: (CPT 27447; principal; 2023-08-29 13:15)
DX: M17.12 Unilateral primary osteoarthritis, left knee (principal); M23.232 Derangement of other medial meniscus due to old tear or injury, left knee; J45.909 Unspecified asthma, uncomplicated; Z79.899 Other long term (current) drug therapy; D64.9 Anemia, unspecified; F32.A Depression, unspecified; N39.3 Stress incontinence (female) (male); R73.03 Prediabetes; K58.9 Irritable bowel syndrome, unspecified; E66.01 Morbid (severe) obesity due to excess calories; G43.909 Migraine, unspecified, not intractable, without status migrainosus; Z68.41 Body mass index [BMI] 40.0-44.9, adult
CPT/HCPCS: 27447; 76942; 97110; 97116; 97162; 97530; G0378; J0690; J1170; J2250; J2405; J8540

== ENCOUNTER 2023-09-11 13:45 | Outpatient (CLI) | payer BC, SELFPAY ==
--- NOTE | 2023-09-11 11:00 | DI.RAD_ITS ---
Exam(s) XR KNEE LT 1V XR STANDING ALIGNMENT EXAM: XR STANDING ALIGNMENT CLINICAL HISTORY: 1ST POST OP L TKA. TECHNIQUE: 2D digital imaging was performed. Standing AP views were performed from the pelvis throu gh the ankles. Lateral view of the left knee COMPARISON: CR XR STANDING ALIGNMENT from 08/04/2023 CR XR KNEE LT 1V from 09/11/2023 FINDINGS: BONES: No acute fracture is present. No bony destructive lesion is seen. Leg length discrepancy: JOINTS: Knees: A left total knee prosthesis has been placed since the previous exam. The alignment a ppears satisfactory. The right knee shows mild periarticular spurring. Femoral tibial joint spaces are maintained. The ankle joints are unremarkable. The hip joints are unremarkable. SOFT TISSUE: Calcifications in right lower leg subcutaneous back consistent with chronic stasis. IMPRESSION: Left knee prosthesis.. No significant leg length discrepancy. DATA REPOSITORY: RADIATION DOSE DELIVERED:
== END 2023-09-11 13:46 | disposition home or self-care (01) ==
LOC: DIORS 13:45
PROVIDERS: PCP Nurse Practitioner Family; Visit Provider Student in an Organized Health Care Education/Training Program
DX: Z96.652 Presence of left artificial knee joint (principal); Z47.1 Aftercare following joint replacement surgery
CPT/HCPCS: 73560; 77073

== ENCOUNTER → 2023-12-21 04:39 | Outpatient (CLI) | payer BC, SELFPAY ==
--- NOTE | 2023-12-21 07:30 | DI.DEXA_ITS ---
Exam(s) XR DEXA BONE DENSITY W/WO KELLY EXAM: XR DEXA BONE DENSITY W/WO KELLY CLINICAL HISTORY: osteopenia,screening for osteoporosis in postmenopausal woman,z78.0 TECHNIQUE: COMPARISON: BD Dexa Bone Density (Axial) from 12/12/2016 FINDINGS: Lateral Spine Image: Unremarkable. No compression deformities identified. Left hip: Total T-Score: 0.0. This compares with a total T-score of 0.7 on the prior examination. Total Z-Score: 1.1 T- and Z-scores: Within normal limits. No evidence of osteoporosis. Left forearm: Total T-Score: -2.4 Total Z-Score: -1.0 T- and Z-scores: The findings are consistent with osteopenia. There is osteoporosis seen in the mid and proximal forearm. IMPRESSION: Osteoporosis is seen in the left forearm.
== END ==
PROVIDERS: PCP Nurse Practitioner Family; Visit Provider Nurse Practitioner Family
DX: Z78.0 Asymptomatic menopausal state (principal); Z13.820 Encounter for screening for osteoporosis; M81.0 Age-related osteoporosis without current pathological fracture
CPT/HCPCS: 77080

== ENCOUNTER 2024-03-22 00:59 | Outpatient (CLI) | payer BC, SELFPAY ==
[2024-03-22 09:38] LABS: HCT 41.9 % (36.0-46.0); HGB 13.6 g/dL (11.2-15.7); MCH 27.8 pg (27.0-33.0); MCHC 32.5 % (32.0-36.0); MCV 86 fL (80-95); MPV 9.3 fL (8.0-11.0); Platelet Count 285 10^3/uL (130-400); RDW 13.6 % (11.7-14.6); RDW-SD 42.7 fL; WBC 6.32 10^3/uL (4.4-10.8)
[2024-03-22 10:35] LABS: Anion Gap 8.6 mmol/L (3-11); BUN 14 mg/dL (7-18); CO2 26.4 mmol/L (21.0-32.0); CREATININE 0.8 mg/dL (0.55-1.02); Calcium 8.8 mg/dL (8.5-10.1); Chloride 107 mmol/L (98-107); Estimated GFR 82.74 (mL/min/1.73m2); Glucose 89 mg/dL (74-106); Potassium 4.3 mmol/L (3.5-5.1); Sodium 142 mmol/L (136-145)
== END 2024-03-22 01:00 | disposition home or self-care (01) ==
LOC: LBO 01:01
PROVIDERS: PCP Nurse Practitioner Family; Visit Provider Student in an Organized Health Care Education/Training Program
DX: M17.11 Unilateral primary osteoarthritis, right knee (principal); Z01.818 Encounter for other preprocedural examination
CPT/HCPCS: 36415; 80048; 85027

== ENCOUNTER 2024-04-02 06:09 | Day surgery (SDC) | payer BC, SELFPAY ==
[2024-04-02] VITALS (31 sets, daily range): BP systolic 108–143; BP diastolic 58–85; PULSE 48–76; RESP 9–23; TEMP 36.3–36.7; O2SAT 92–100; BMI 42.9
--- NOTE | 2024-04-02 07:04 | W.PM.DS.N ---
Date of service: 04/02/24 Time of Service: 07:09 Discharge Plan Disposition Patient Disposition: Home Condition: Good Discharge Details Reason For Visit: Right knee DJD Attending Provider: J Carlos Stallworth Primary Care Provider: Tabby Enriquez Home Meds and New Rx's Prescriptions: New acetaminophen 500 mg tablet 1,000 mg PO Q8H PRN Qty: 90 0RF Rx Instructions: Take two tablets up to every 8 hours as needed for pain aspirin 81 mg tablet,delayed release (DR/EC) 81 mg PO BID 30 Days Qty: 60 0RF dexamethasone 4 mg tablet 4 mg PO DAILY Qty: 2 0RF Rx Instructions: Take one tablet once daily for two days docusate sodium [Colace] 100 mg capsule 100 mg PO BID Qty: 30 0RF gabapentin 300 mg capsule 300 mg PO QHS Qty: 14 0RF Rx Instructions: Take one tablet at bedtime pantoprazole 40 mg tablet,delayed release (DR/EC) 40 mg PO DAILY Qty: 14 0RF oxycodone 5 mg tablet 5 mg PO Q4H PRNQty: 18 0RF Rx Instructions: Take one tablet up to every 4 hours as needed for severe postoperative pain celecoxib [Celebrex] 200 mg capsule 200 mg PO BID Qty: 60 0RF Rx Instructions: Take one capsule twice daily for pain and inflammation Continued levocetirizine [Xyzal] 5 mg tablet 5 mg PO DAILY Qty: 90 3RF Centrum Women 18-400 mg-mcg tablet 1 tab PO DAILY ascorbic acid (vitamin C) 1,000 mg tablet 1 g PO DAILY calcium carbonate-vitamin D2 500-125 mg-unit tablet 2 tab PO DAILY triamcinolone acetonide [Nasacort Allergy] 55 mcg aerosol,spray 1 spray intranasal BID Rx Instructions: administer into each nostril albuterol sulfate 90 mcg/actuation HFA aerosol inhaler 2 puff inhalation QID PRN tirzepatide (weight loss) 7.5 mg/0.5 mL pen injector 7.5 mg subcut QWEEK Qty: 2 1RF Patient Comments: taking 5mg sc at present guanfacine 1 mg tablet 1 mg PO DAILY PRN Discharge Instructions Additional Instructions: Total Knee Discharge Instructions Activity: The most important activity is to walk and to work on gentle motion (both flexion and extension). You should try to take short walks a few times a day. It is important that when resting you work on keeping the knee straight. Avoid putting a pillow behind the knee as this will encourage flexion. Work on range of motion exercises as provided by Physical Therapy. - Start outpatient physical therapy within 2 weeks. - You should wear the NORMA hose on both legs for 2 weeks. You may remove these at night. You may also use any compression sock in place of the NORMA hose. - Utilize [employer] to review exercises, see videos on exercises and obtain basic information pertaining to your surgery and your recovery. Dressing: Remove the Eddi wrap by 2 days after your surgery and put on the NORMA stocking given to you from the hospital. Keep the surgical dressing (underneath the EDDI wrap) in place for at least one week. After the first week it may be removed and replaced with light gauze and tape or nothing. The wound and dressing may get wet after 3 days but avoid soaking the dressing or otherwise it will need to be changed. Many people prefer covering the dressing with cling wrap (saran wrap) to minimize it from getting soaked. If it gets wet, just pat dry. If it starts to peel off then it will need to be changed. Medications: - You should take Tylenol and anti-inflammatory Celebrex as your primary pain control medications. If the Celebrex is too expensive or not covered, please call the office for another alternative (Advil/Ibuprofen or Naproxen/Aleve) - You have been prescribed a stronger pain medication Oxycodone for breakthrough pain, take as needed as prescribed. - You have also been prescribed a stomach acid reduction agent Pantoprozole to help reduce stomach acid and reflux. - You have been prescribed Gabapentin to take at night for restlessness and nerve pain. - You will be taking Aspirin 81mg twice a day for DVT prevention unless instructed otherwise. - You have also been prescribed Decadron to take to control post-operative nausea and pain. You will start this tomorrow. - If you have constipation you should take Colace (which has been prescribed) or Miralax (which is available [id number]). It takes most people 3-4 days to have a bowel movement. Follow-up: 2 weeks If you have any acute concerns or questions, please do not hesitate to contact the office at [phone]. You may contact Dr. Stallworth with any questions after hours through the hospital at [phone] or on his cell phone at [phone]. Stand Alone Forms: Anesthesia Discharge Inst., Eunice Montes ([facility]) Referrals: J Carlos Stallworth MD [ [facility] STAFF PHYSICIAN] - 04/15/24 10:00 am Equipment/Supplies: Walker Activity:: Elevate Remove Dressings/Wound Care:: Do Not Remove Shower/Bathe:: Cover Diet:: As Tolerated Discharge Orders Discharge Orders: Discharge Order (Routine); Ordered 04/02/24 Ordered By: Tosin El Discharge Data Discharge Date/Time-TO BE ENTERED AT DEPARTURE: 04/02/24 13:00 DS: Summary Time Spent with Patient providing and/or coordinating discharge services: Less than 30 minutes Status at Discharge Functional status at discharge: uses cane/walker Overall status at discharge: patient is progressing back to baseline Mental Status: mental status grossly normal Speech and Movement: speech and movement normal Mood: congruent mood Affect: normal affect Quality:SDOH Health Related Social Needs: No Data to Display Exam Psych Mental Status: mental status grossly normal Speech and Movement: speech and movement normal Mood: congruent mood Affect: normal affect DS: Data Vitals/I&O Vitals and I&O: Vital Signs Temperature 97.5 F L 04/02/24 06:10 Pulse 75 04/02/24 06:10 Pulse Rhythm Regular 04/02/24 06:10 Respiratory Rate 16 04/02/24 06:10 Respiratory Depth Normal 04/02/24 06:10 Blood Pressure 143/85 H 04/02/24 06:10 Pulse Oximetry 95 04/02/24 06:10 Oxygen Delivery Method Room Air 04/02/24 06:10 Oxygen Flow Rate 0 04/02/24 06:10 Comment 3/10 right glute 04/02/24 06:10 Intake & Output 04/01/24 04/01/24 04/02/24 11:59 23:59 11:59 Weight 242 lb 4.608 oz PFSH All Active Problems (Updated 04/03/24 @ 08:10 by Denisse Villegas RN) History of total right knee replacement (Acute 04/02/24) IBS (irritable bowel syndrome) (Chronic) Ventral hernia (Acute) Osteoarthritis (Chronic) Osteopenia (Acute) Varicose veins of legs (Chronic) Right leg Allergic rhinitis (Chronic) Sigmoid diverticulosis (Acute) Obesity, Class III, BMI 40-49.9 (morbid obesity) (Chronic) Medical History (Updated 04/03/24 @ 08:10 by Denisse Villegas RN) BCC (basal cell carcinoma of skin) Migraine Hasn't had for over 20 years since menopause Reactive airway disease Urinary, incontinence, stress female Depression Anemia Surgical History (Updated 04/03/24 @ 08:10 by Denisse Villegas RN) History of total left knee replacement (08/29/23) History of bilateral tubal ligation Hx of spinal fusion (08/30/21) L4-S1 S/P trigger finger release Hx of section History of lateral meniscus repair of right knee Hx of tonsillectomy Hx of laparoscopic gastric banding (07/09/05) has had the band removed History of anterior colporrhaphy (02/13/13) Hx of colonoscopy (09/26/08) Family History (Updated 10/26/23 @ 18:05 by Erin Lerner) Mother , 82 Asthma Hypertension Cancer Hyperlipidemia Heart disease Father , 78 Alcohol use disorder Hypertension Maternal Grandfather Alcohol use disorder Paternal Grandfather No problems noted. Maternal Grandmother Heart disease Breast cancer Hypertension Paternal Grandmother No problems noted. Sister Hypothyroidism Sister Asthma Sister No problems noted. Brother Alcohol use disorder Asthma Brother No problems noted. Son No problems noted. Son , 30 Substance use disorder Social History (Updated 10/26/23 @ 18:02 by Erin Lerner) Smoking/Tobacco Use Status: Never Second Hand Exposure: Yes Smoking risk assessment performed?: Yes Alcohol Intake: current Alcohol Intake frequency: a few times a month Alcohol type: beer Drug use: Never Substance use type: does not use Details: alcohol: t-7, one week Adopted: No Caregiver/Support person: No Foster care: No Household members: none Housing: house Number of Children: 2 Education Level: college Do you need help understanding health information?: Rarely current occupation: RN Pets and animals: Yes Pets and animals: dog(s) Sexually active: No Do you think of yourself as: straight/heterosexual Current gender identity: female What is your relationship status?: How often do you talk on the phone with friends or family?: three or more times per week How often do you get together with friends or relatives?: three or more times per week How often do you attend muslim or evangelical services?: decline to answer Do you belong to any clubs or organized social groups?: yes Panel score (0-1 are the most socially isolated patients): 2 What type of physical activity do you participate in: walking Duration: 15-30 minutes/day Frequency: 3-4 times per week Elda/Anglican: Oriental Orthodox Special elda needs: No Agree to transfusion: Yes Seatbelt use: always Helmet use: Yes Helmet use: always Drive intox or ride w/intox cross country truck driver: No Working smoke detector in home: Yes Carbon monox detector in home: Yes Firearms in home: Yes Firearms unloaded and locked: Yes Do you feel safe at home: Yes Do you feel safe in your relationship?: Yes Victim of physical abuse: No Victim of emotional abuse: No Victim of sexual abuse: No Would you like helpful sources: No Additional Social history: lives alone Time Spent with Patient Time Spent with Patient: <45 minutes Time was spent: preparing to see the patient(eg.review tests), referring, communicating with other health health care sanitary technician and counseling the patient
--- NOTE | 2024-04-02 07:05 | ANES.PREOP_ITS ---
General Info Date of Service Date Performed: 04/02/24 Height: 5 ft 3 in Weight: 109.9 kg Body Mass Index (BMI): 42.9 Surgical Procedure: Operation Date: 04/02/24 07:40 Proposed Procedure Side Surgeon p Knee Total Arthroplasty, Cementless CR (5 Femur, 4 Tibia on LT) Right J Carlos Stallworth MD Actual Procedure Side Surgeon p Knee Total Arthroplasty, Cementless CR (5 Femur, 4 Tibia on LT) Right J Carlos Stallworth MD Pre-Op Diagnosis Post-Op Diagnosis Degenerative joint disease of right knee: Meds Allergies and Home Medications Allergies Allergy/AdvReac Type Severity Reaction Status Date / Time No Known Allergies Allergy Verified 04/02/24 06:28 Home Medication Medication Instructions Recorded triamcinolone acetonide 55 mcg 1 spray intranasal BID 01/12/23 nasal spray aerosol (Nasacort Allergy) albuterol sulfate 90 mcg/actuation 2 puff inhalation QID PRN 01/13/23 aerosol inhaler ascorbic acid (vitamin C) 1,000 mg 1 g PO DAILY 01/13/23 tablet multivitamin-ferrous 1 tab PO DAILY 01/13/23 fumarate-folic acid 18 mg-400 mcg tablet (Centrum Women) calcium carb-ergocalciferol (vit 2 tab PO DAILY 03/01/23 D2) 500 mg-125 unit tablet levocetirizine 5 mg tablet (Xyzal) 5 mg PO DAILY #90 tabs 03/14/24 tirzepatide (weight loss) 7.5 7.5 mg (0.5 mL) subcut QWEEK #2 mL 03/20/24 mg/0.5 mL subcutaneous pen injector guanfacine 1 mg tablet 1 mg PO DAILY PRN 03/29/24 Celebrex 200 mg capsule (celecoxib) 200 mg PO BID #60 caps 04/02/24 acetaminophen 500 mg tablet 1,000 mg (2 x 500 mg) PO Q8H PRN 04/02/24 pain #90 tabs aspirin 81 mg tablet,delayed 81 mg PO BID 30 days #60 tabs 04/02/24 release dexamethasone 4 mg tablet 4 mg PO DAILY #2 tabs 04/02/24 docusate sodium 100 mg capsule 100 mg PO BID #30 caps 04/02/24 (Colace) gabapentin 300 mg capsule 300 mg PO QHS #14 caps 04/02/24 oxycodone 5 mg tablet 5 mg PO Q4H PRN #18 tabs 04/02/24 pantoprazole 40 mg tablet,delayed 40 mg PO DAILY #14 tabs 04/02/24 release Current Visit Medications: Current Medications Generic Name Dose Route Start Last Admin Trade Name Freq PRN Reason Stop Dose Admin Hydromorphone HCl 0.5 mg 04/02/24 07:02 Hydromorphone 2 Mg/Ml Syr IVP 05/02/24 07:01 Q2H PRN PRN Ringer's Solution 1,000 mls @ 80 mls/hr 04/02/24 06:00 IV 04/02/24 23:59 INFUSION NASRIN Cefazolin Sodium/Dextrose 2 gm in 50 mls @ 100 mls/hr 04/02/24 06:00 Ancef Duplex IVPB 04/02/24 23:59 PREOP NASRIN Cefazolin Sodium/Dextrose 1 gm in 50 mls @ 100 mls/hr 04/02/24 08:00 Ancef Duplex IVPB 04/03/24 00:29 Q8H NASRIN IV Miscellaneous Supplies 1 each 04/02/24 06:00 Iv Access IV 04/02/24 23:59 DIRECTED NASRIN Oxycodone HCl 0 mg 04/02/24 07:02 Oxycodone 5 Mg Tab PO 05/02/24 07:01 Q3H PRN PRN Pain Sodium Chloride 0 ml 04/02/24 06:00 Normal Saline Flush 10 Ml Syr IV 04/02/24 23:59 PRN PRN Sodium Chloride 0 ml 04/02/24 06:00 Normal Saline 10 Ml Vial IJ 04/02/24 23:59 DIRECTED PRN Sterile Water 0 ml 04/02/24 06:00 Water,Injection,Sterile 10 Ml Vial IJ 04/02/24 23:59 DIRECTED PRN PFSH Active Problems Active Problems: Problem Status Onset Code Degenerative joint disease of right knee M17.11 IBS (irritable bowel syndrome) K58.9 Ventral hernia K43.9 Osteoarthritis M19.90 Osteopenia M85.80 Varicose veins of legs I83.93 Allergic rhinitis J30.9 Sigmoid diverticulosis K57.30 Obesity, Class III, BMI 40-49.9 (morbid obesity) E66.01 Medical History Medical History BCC (basal cell carcinoma of skin) Migraine Hasn't had for over 20 years since menopause Reactive airway disease Urinary, incontinence, stress female Depression Anemia Medical History Comments:: PONV s/p L TKA 2022 Surgical History Surgical History History of total left knee replacement (08/29/23) History of bilateral tubal ligation Hx of spinal fusion (08/30/21) L4-S1 S/P trigger finger release Hx of section History of lateral meniscus repair of right knee Hx of tonsillectomy Hx of laparoscopic gastric banding (07/09/05) has had the band removed History of anterior colporrhaphy (02/13/13) Hx of colonoscopy (09/26/08) Tobacco Smoking/Tobacco Use Status: Never Passive smoking exposure: Yes Second hand exposure: Yes Alcohol Alcohol Intake: current Alcohol intake frequency: a few times a month Alcohol type: beer Substance Use Substance use: Never Substance use type: does not use Details: alcohol: t-7, one week Vital Signs and Lab Results Vital Signs Most Recent Vital Signs in EMR: Most Recent Vital Signs Temp Pulse Resp BP Pulse Ox 36.4 C L 75 16 143/85 H 95 04/02/24 06:10 04/02/24 06:10 04/02/24 06:10 04/02/24 06:10 04/02/24 06:10 Lab Results Blood Type / Crossmatch: No Data to Display Complete Blood Count: 2 White Blood Count 6.32 10^3/uL (4.4-10.8) 03/22/24 09:30 Red Blood Count 4.90 10^6/uL (3.93-5.22) 03/22/24 09:30 Hemoglobin 13.6 g/dL (11.2-15.7) 03/22/24 09:30 Hematocrit 41.9 % (36.0-46.0) 03/22/24 09:30 Platelet Count 285 10^3/uL (130-400) 03/22/24 09:30 Complete Metabolic Panel: Sodium 142 mmol/L (136-145) 03/22/24 09:30 Potassium 4.3 mmol/L (3.5-5.1) 03/22/24 09:30 Chloride 107 mmol/L (98-107) 03/22/24 09:30 Carbon Dioxide 26.4 mmol/L (21.0-32.0) 03/22/24 09:30 BUN 14 mg/dL (7-18) 03/22/24 09:30 Creatinine 0.8 mg/dL (0.55-1.02) 03/22/24 09:30 Est GFR (CKD-EPI 2020) 82.74 (mL/min/1.73m2) 03/22/24 09:30 Calcium 8.8 mg/dL (8.5-10.1) 03/22/24 09:30 Glucose 89 mg/dL (74-106) 03/22/24 09:30 Liver Function Panel: 2 No Data to Display Coagulation Panel: No Data to Display Cardiac Panel: No Data to Display Arterial Blood Gas: No Data to Display Venous Blood Gas: No Data to Display Pancreas Panel: No Data to Display Thyroid Panel: No Data to Display Infectious Disease: No Data to Display Blood Cultures: No Data to Display Toxicology Panel: No Data to Display Anesthesia Assessment and Plan Anesthesia History Personal History: No History of Anesthesia Complications Family History: No Family History of Anesthesia Complications Exercise Tolerance Exercise Tolerance: Metabolic Equivalents>4 Pertinent Negatives Pertinent Negatives: No Symptoms of GERD, No Major Cardiovascular Symptoms or Complaints, No Major Pulmonary Symptoms or Complaints and No History of CVA/TIA Cardiac & Pulmonary Exam Cardiac Exam: Normal S1/S2 Heart Sounds Pulmonary Exam: Clear Bilateral Breath Sounds Implantable Cardiac Device Does patient have a Pacemaker or an ICD?: No Airway Exam Known Difficult Airway: No Mallampati Class: 2 Mouth Opening: Normal (> 3cm) Thyromental Distance: Greater than 3 cm Neck Range of Motion: Full ROM Neck Circumference: Normal Teeth Condition: Normal Dentition ASA Classification ASA Score: ASA 3 Emergency Case?: No NPO Status NPO Status: NPO Clears >2 hours, Solids >8 hours Anesthesia Plan Resuscitation Status: Full Code Anesthesia Technique: General Anesthesia Airway Planned: Endotracheal Tube Pain Management: Surgeon and patient request nerve block Monitors Used: Standard Monitors
[2024-04-02] MEDS: Lactated Ringers 1,000 ML 80 ML IV (07:12)
[2024-04-02] MEDS: Gabapentin 300 MG CAP PO (07:21)
[2024-04-02] MEDS: Acetaminophen 500 MG TAB 1000 MG PO (07:21)
[2024-04-02] MEDS: Celecoxib 200 MG CAP 400 MG PO (07:22)
[2024-04-02] MEDS: ceFAZolin 2 GM/50 ML BAG IVPB (07:30)
--- NOTE | 2024-04-02 07:39 | ROE_ITS ---
Date of service: 04/02/24 Time of Service: 07:39 Operative Note Operative Note DATE OF PROCEDURE: 04/02/24 PRE-OP DIAGNOSIS: Right Knee Osteoarthritis POST-OP DIAGNOSIS: same PROCEDURE: Right Total Knee Replacement SURGEON: J Carlos Stallworth [employer] BLASTING: Tosin El ANESTHESIA TYPE: Spinal Refer to Anesthesia Record ESTIMATED BLOOD LOSS: 100 PATHOLOGY: none sent TOURNIQUET TIME: 0 COMPLICATIONS: None Patient was transported to: PACU Patient's condition: stable Implants: 1. Depuy Attune Cementless Cruciate Retaining Femoral Component, Size 5 2. Depuy Attune Cementless Fixed Bearing Tibial Component, Size 4 3. Depuy Attune 5x6 CR/FB Poly 4. Depuy Attune Patellar Component, Size 35 Indications: I have seen Tressa in clinic for symptoms of knee arthritis, confirmed with radiographic findings. She has exhausted nonoperative methods and was having significant limitations in daily function and desired better function and less pain. She previously underwent left knee replacement with excellent results. I discussed the technical details of a knee replacement. I explained the risks of the procedure to include, but not limited to, bleeding, infection, pain, stiffness, fracture, damage to nerves and vessels, damage to muscles and tend ons, loosening, need for repeat procedure, blood clot and cardiopulmonary demise. Despite these risks, Tressa elected to proceed. Findings: There was significant signs of arthritis throughout the knee involving the majority of the trochlea and the medial compartment as well as a focal area of full-thickness cartilage loss over the lateral femur. Procedure Description: Tressa was greeted in the preoperative holding area where the correct side was identified and marked. The consent was reviewed with the patient and signed. The history and physical was updated. All questions were answered. Preoperative medications were administered: Acetaminophen 1000mg, Celebrex 400mg, and Gabapentin 300mg. An adductor canal block was then administered by the anesthesia team in the [facility]. She was taken back to the operating room. A general anesthestic was then administered. The patient was placed into the supine position on the operating room table. A nonsterile tourniquet was placed high onto the leg but only used for cementing. Posts were placed for positioning during the procedure. All bony prominences were well padded. Prophylactic antibiotics in the form of Cefazolin were administered. 1g of Tranxemic Acid was given intravenously within 30 minutes of incision. The right leg was then prepped with Chloraprep and draped in a standard fashion with impervious stockinette. A second prep with Chloraprep was performed prior to application of Iodine impregnated skin protection. A timeout to confirm correct identity, side and site, procedure, allergies, anesthesia, and medical concerns was performed. With the knee in some flexion, a midline incision was made overlying the knee. Full thickness skin flaps were raised once the extensor mechanism was encountered. These were raised medially and laterally. Any bleeding was controlled with electrocautery. Once the extensor mechanism was fully exposed, a medial parapatellar arthrotomy was performed in a flexed position. All bleeding from the arthrotomy and the geniculate arteries was coagulated. A medial subperiosteal peel was performed with electrocautery to the midcoronal plane. The fat pad was removed while keeping the patellar tendon protected. The anterior distal femur synovium was removed for later visualization. The ACL and PCL were resected and the anterior horn of the lateral meniscus was transected. The knee was then flexed with the patella everted. Large osteophytes from the tibia were removed. Large osteophytes from the femur were removed. Using a step drill, and based on preoperative templating, the femoral canal was entered. This was done with a step drill without any difficulty. The intra medullary distal femoral cut guide was inserted, set to a 5 degree valgus cut and 9mm cut thickness. The distal femoral cut guide was then held in position and pinned. With the soft tissues protected, the distal cut was performed. This was passed over a few times to ensure a planar cut. I then turned attention to the tibia. The extramedullary guide was placed onto the leg. The distal aspect was slid medial to adjust for position of center of ankle and stay in line with shaft of the tibia. Approximately 5 degrees of posterior slope was kept in the proximal cutting guide. The center of the guide was aligned with the PCL. The stylus was used to assess cut thickness. The medial side, most involved side, was set for a 5mm cut which corresponded to about 9 mm laterally. This was then held in position and pinned into place with 2 additional pins and a cross pin for stability. The medial and lateral collateral ligaments were protected and the cut was performed. With this completed, it was assessed and noted to be of appropriate dimensions. The guide was removed. A spacer block was inserted and the knee was brought into extension. The 6mm spacer block provided full extension, without hyperextension and with stability of both the medial and lateral collateral ligaments was assessed. The pins from the femur and the tibia were then removed. The distal femur was then sized. The anterior stylus was placed onto the lateral ridge of the anterior femur. This indicated a size 5 femur. The external rotation of the guide was adjusted to 3 degrees to match the epicondylar axis, perpendicular to Dallas?s line. The 4-in-1 cutting guide was the placed, moved posteriorly 1 notch. The posterior medial femur cut was evaluated and appeared of good thickness. The spacer block was inserted underneath the cutting guide and stability was confirmed in 90 degrees of flexion. An samantha wing was used to confirm appropriate position of the anterior cut to avoid notching. This cutting guide was ensured to be flush on the cut surface and then pinned into place with headed pins. While protecting the soft tissues, quad tendon, and collateral ligaments, the anterior and posterior cuts were performed with a saw. The central two pins were removed and the posterior and anterior chamfers were cut next. The notch-cutting guide was placed. This was pinned to lateralize the femoral component as much as possible while keeping it flush on the cut surface. This was then pinned into position. A reciprocating saw was used to make the notch cut. A rasp smoothed the cut surfaces. The medial and lateral menisci were removed. A trial femoral component was then inserted, impacted down to the cut surfaces, and the lug holes were drilled. A provisional trial tibial component was placed and the knee was brought through range of motion. There was noted to be excellent extension and flexion. There was no significant instability. The patella was tracking without thumbs. A size 6mm polyethylene component provided the best range of motion and stability with less than 2mm gapping with medial and lateral stress and full extension without significant hyperextension. The tibial cut surface was fully exposed. The tibia was then sized as a 4. The tibia had been previously marked during trialing to correspond to the center of the tibial component to help with rotation. The trial was aligned to this héctor, approximately rotated to the medial 1/3rd of the tibial tubercle. The trial was pinned into place. The tibia was prepared with a reamer and a keel punch and lug holes. The knee was then brought into extension and the patella was measured as 21mm. Using the patellar clamp and cut guide, this was resected to a flat surface with at least 13mm of thickness remaining. The size 35 patella fit the best. This was oriented and then clamped into position. The lugs were drilled. The trial components were removed. The final components were opened on the back table. The periosteal and capsular tissues, especially posteriorly, around the knee were then systematically injected with a periarticular cocktail consisting of 246mg of Ropivacaine, 0.5mg of Epinephrine, 0.08mg of Clonidine, and 30mg of Ketorolac, diluted to 100cc. On the back table, with the implants opened, the cement was mixed. One batch of high viscosity cement was prepared with vacuum assistance. After the cement was ready a small amount was placed on the cut surface of the patella and the patellar button was clamped into position and held. While the cement was hardening, the cementless knee components were placed. Starting with the tibial component, the tibia was subluxed anteriorly and the lug holes of the component were lined up. The tibia was then impacted with an impactor and mallet until the tibial component was in contact with the tibia. The final polyethylene component was inserted. Then, the femoral component was inserted. The lug holes were aligned and the component was impacted into position. The knee was irrigated with Surgiphor Betadine solution. This was allowed to sit in the knee for 3 minutes and then it was irrigated out with saline. After the cement had finally cured, approximately 15min, the clamp was removed from the patella and the knee was taken through range of motion. The patella was tracking with a no-thumbs technique. The capsule was then reapproximated with a No. 1 Vicryl at multiple locations. The capsule was finally closed with a No. 2 Stratafix, barbed suture. The second dosing of 1g TXA was started. Deep tissues were then reapproximated with 0 Vicryl and 2-0 Vicryl. The skin was closed with a running 3-0 Monocryl in a subcuticular fashion. This was reinforced with skin glue. A Mepilex silver dressing was applied along with a [id number] JOSE MARIA wrap. A CryoCuff was applied. Tressa was transferred to the hospital bed without difficulty an suffering no apparent complication. She has a good prognosis. Physical therapy will start today and without restrictions, weight-bearing as tolerated. Aspirin 81mg BID will be used for DVT prophylaxis.
[2024-04-02] MEDS: TRANEXAMIC ACID/SOD. CHL. 1,000 MG/100 ML BAG 600 MG IVPB (07:41)
--- NOTE | 2024-04-02 08:04 | W.ANESNERVE ---
Nerve Block Single Injection Procedure Date and Time Date Performed: 04/02/24 Procedure Start: 07:23 Location Where Procedure Performed Procedure Location: Day Surgery Unit Reason Performed: Postoperative Analgesia Requesting Provider: J Carlos Stallworth Timeout Performed Timeout Performed: Yes Monitoring Used ECG, Blood Pressure, SpO2 and See EMR for corresponding vital signs Sterility Sterility: Hand Hygiene, Surgical Cap, Surgical Mask, Sterile Gloves, Sterile Drape/Sheet and Chlorhexidine Sedation Given During Procedure Sedation Given (Indicate Dose Given): No Sedation given Patient Mental Status Patient Mental Status: Awake Nerve Block 1st Nerve Block: Laterality: Right Block Type: Adductor Canal Ultrasound Image Saved?: Yes Needle / Catheter Used: 120mm SonoPlex II Local Anesthetic Bolus (Indicate Dose Given): Lidocaine used for local infiltration of skin, Injected in 3-5ml increments after negative blood aspiration and Bupivacaine 0.25% Dose:: 20 ml Additives (Indicate Dose Given): None Ultrasound: Sterile probe cover and gel used Nerve Stimulator: Supplement to Ultrasound use and No twitch or parasthesia noted < 0.5 mA Paresthesia: None Procedure Tolerated: No Complications and Patient tolerated well Procedure Outcome: Successful Performed By: Komal Musa
[2024-04-02] MEDS: fentaNYL 100 MCG/2 ML VIAL IVP (09:46)
[2024-04-02] MEDS: oxyCODONE 5 MG TAB PO (10:40)
--- NOTE | 2024-04-02 11:15 | IN_ITS ---
PT Notes Visit Reasons: Right knee DJD Physical Therapy Inpatient Initial Evaluation Date: 04/02/2024 Referring Doctor: BARBARA Goff PT Orders: PT CONSULT: S/P Ortho Surgery Precautions: Fall. Standard. Activity as tolerated. Patient Profile/Admitting Diagnosis: Tressa is a 63-year-old female with degenerative joint disease of the right knee and is status post right total knee arthroplasty on postoperative day 0. PMHX: Medical History (Updated 03/22/24 @ 10:28 by Tosin El) BCC (basal cell carcinoma of skin) Migraine Hasn't had for over 20 years since menopause Reactive airway disease Urinary, incontinence, stress female Depression Anemia Surgical History (Updated 10/26/23 @ 07:44 by Tabby Enriquez NP) History of total left knee replacement (08/29/23) History of bilateral tubal ligation Hx of spinal fusion (08/30/21) L4-S1S/P trigger finger release Hx of section History of lateral meniscus repair of right knee Hx of tonsillectomy Hx of laparoscopic gastric banding (07/09/05) has had the band removed History of anterior colporrhaphy (02/13/13) Hx of colonoscopy (09/26/08) Social History/Home Situation: Lives alone in a private home with 4 steps to enter. Independent with all aspects of ADLs prior to surgery. 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 Equipment Owned/DME: 4WW, FWW Subjective: 3-4/10 pain in the R knee. Denied headache, chest pain, and lightheadedness throughout session. Objective: General Observation: Nurse Ramirez was helping patient from commode to chair when PT came in. JOSE MARIA wraps to R LE. Cryocuff to R knee. Mental Status: Alert and oriented as to person, place, time, and purpose. Able to pay attention, focus, and respond appropriately. Pain: As above Vital Signs: Closely monitored by [facility] staff ROM: Left Lower Extremity: Hip flexion WFL. Hip abduction WFL. Knee flexion WFL. Ankle dorsiflexion WFL. Ankle plantarflexion WFL. Right Lower Extremity: Hip flexion WFL. Hip abduction WFL. Knee flexion 30 degrees to 90 degrees. Knee extension -30 degrees. Ankle dorsiflexion WFL. Ankle plantarflexion WFL. Strength: Left Lower Extremity: Hip flexors 5/5. Hip abductors 5/5. Knee flexors 5/5. Knee extensors 5/5. Ankle dorsiflexors 5/5. Ankle plantarflexors 5/5. Right Lower Extremity: Hip flexors 4/5. Hip abductors 4/5. Knee flexors 3-/5. Knee extensors 3-/5. Ankle dorsiflexors 4/5. Ankle plantarflexors 4/5. Bed Mobility/Transfers: Minimal cueing provided for use of B hands as needed for support, movement sequence, AD management, and posture to reduce fall risk and minimize pain report Sit to stand stand by assist with FWW Stand to sit stand by assist with FWW Gait: Facilitated safe and correct performance of level surface ambulation covering a distance of 150 feet using front-wheeled walker with step through heel-toe gait pattern requiring standby assist and minimal verbal cueing for movement sequence, limb advancement, and AD management. No report of increased pain. No LOB. No SOB. Denied headache, chest pain, and lightheadedness throughout se ssion. Balance: Static Sitting: Normal Dynamic Sitting: Normal Static Standing: Fair Dynamic Standing: Fair Special Tests: Mobility Limitations Standardized Measure [facility] AM-PAC 6 clicks Basic Mobility Inpatient Short Form: Raw Score: 23 CMS Score: 11% deficit Informed Consent/Education: Patient was instructed in purpose of PT consult and plan of care. Agreeable to proceed with established PT POC to achieve personal goals. Trained patient with correct performance of exercises below to maximize motor control, joint flexibility, soft tissue extensibility of the R knee musculature: Access Code: [email or web address] URL: [email or web address] Date: 04/02/2024 Prepared by: Angeles Grossman Exercises - Supine Quad Set - 1 x daily - 7 x weekly - 1 sets - 10 reps - 5 hold - Supine Heel Slide - 1 x daily - 7 x weekly - 1 sets - 10 reps - 5 hold - Supine Ankle Pumps - 1 x daily - 7 x weekly - 1 sets - 10 reps - 5 hold - Small Range Straight Leg Raise - 1 x daily - 7 x weekly - 1 sets - 10 reps - 5 hold - Seated March - 1 x daily - 7 x weekly - 1 sets - 10 reps - 5 hold ASSESSMENT: Patient requires the use of a front wheel walker for all mobility ADL performance to maximize independence and reduce fall risk. Pain and lightheadedness minimally limited today's performance. Will ensure premedication for pain in the next sessions. Patient presents with clinical signs and symptoms consistent with current/admitting diagnoses that have resulted to mobility limitations, gait instability, generalized weakness, and overall ADL decline as demonstrated by the following impairment level findings: 1. Decreased strength to R knee major muscle groups 2. Impaired sitting/standing balance 3. Impaired activity tolerance 4. Limitation of joint range of motion in R knee 5. Pain in L knee at 6/10 Impairments are contributing to the following functional limitations: 1. Decline in bed mobility skills 2. Decline in transfer skills 3. Difficulty with ambulation without assistive device 4. Increased completion time for mobility ADL performance 5. Increased risk for falls 6. Difficulty with managing steps alone safely Patient is assessed as a 46866 moderate complexity based on the following: History: 62-year-old female with past medical history as indicated above Examination: Demonstrable impairment in strength, balance, and mobility level with underlying impairments and functional limitations as exhibited above as well as deficit score of 11% utilizing the [facility] Mobility Inpatient Short Form Presentation: Evolving Decision Makin moderate complexity Goals: N/A. PT evaluation and 1 treatment session only for functional mobility training and HEP instruction. Plan of Care/Treatment Plan: N/A. PT evaluation and 1 treatment session only for functional mobility training and HEP instruction. DISCHARGE RECOMMENDATIONS: Home when medically cleared by orthopedic surgeon. Recommend outpatient PT services in order to optimize functional mobility outcomes and facilitate return to independent community ambulation without an assistive device. TREATMENT CODE/TIME: 02745 x 20 minutes for 1 unit, 91343 x 21 minutes for 1 unit (11: 15?11: 56). Thank you for this referral. Please do not hesitate to contact me with any questions or concerns regarding this patient's plan of care. Please sign and return this page within 14 days if you agree with the above POC. Thank you! Referring Physician's Signature Date Angeles Grossman PT, DPT, CLT [facility]
--- NOTE | 2024-04-02 12:18 | W.ANESPOSTOP ---
Postoperative Evaluation Date, Time and Location Date Performed: 04/02/24 Time Performed: 12:06 Patient Location: Day Surgery Unit Vital Signs Most Recent Imported Vital Signs: Most Recent Vital Signs Temp Pulse Resp BP Pulse Ox 36.4 C L 70 18 125/73 100 04/02/24 10:45 04/02/24 10:45 04/02/24 10:45 04/02/24 10:45 04/02/24 10:45 Pain Score Most Recent Pain Score: Most Recent Pain Score Pain Level 3 04/02/24 10:45 Assessment Mental Status: Awake (Alert & Oriented to Patient Baseline) Airway and Respiratory Function: Patent airway with normal (patient baseline) respiratory exam Cardiovascular Function: Hemodynamically Stable Hydration Status: Adequately Hydrated Nausea & Vomiting: Active Nausea or Vomiting Present Nausea and Vomiting Management: Nausea present without vomiting, patient wishes to be discharged (denies need for medication) Pain: Pain is tolerable per patient Peripheral Nerve Block: Regional nerve block not resolved at time of post operative discharge
[2024-04-02] MEDS: Droperidol 5 MG/2 ML VIAL 0.625 MG IVP (12:43)
== END 2024-04-02 13:00 | disposition home or self-care (01) ==
PROVIDERS: PCP Nurse Practitioner Family; Visit Provider Student in an Organized Health Care Education/Training Program
PROC: (CPT 27447; principal; 2024-04-02 07:30)
DX: M17.11 Unilateral primary osteoarthritis, right knee (principal); M85.80 Other specified disorders of bone density and structure, unspecified site; E66.01 Morbid (severe) obesity due to excess calories; Z68.41 Body mass index [BMI] 40.0-44.9, adult; D64.9 Anemia, unspecified; F32.A Depression, unspecified
CPT/HCPCS: 27447; 76942; 97162; 97530; C1776; J0665; J0690; J1100; J1790; J2405; J2704; J3010

== ENCOUNTER → 2024-04-19 00:41 | Outpatient (CLI) | payer BC, SELFPAY ==
--- NOTE | 2024-04-19 07:45 | DI.MAMMO_ITS ---
Exam(s) MAMMO SCREENING EXAM: MAMMO SCREENING CLINICAL HISTORY: screening,z12.39 TECHNIQUE: Bilateral full field digital CC and MLO mammographic images were obtained with 3D tomosyn thesis and utilizing computer aided detection (CAD). COMPARISON: Available for comparison. FINDINGS: Masses/Architectural Distortion: There are stable nodules in the left breast. No new nodules. No ar eas of architectural distortion. Microcalcifications: No suspicious pleomorphic-type are seen. Skin Thickening/Nipple Retraction: None. IMPRESSION: 1. No significant interval change with no specific features of malignancy noted. 2. Unless there is more urgent need, screening mammography is recommended, as per [place] [employer] guidelines. BI-RADS Category 2 - Benign Findings Breast Density - Category A - Almost entirely fatty Breast density category C or D implies that the patient has dense breast tissue. Dense breast tissue is very common and is not abnormal but dense breast tissue can make it harder to find cancer on a ma mmogram. Also, dense breast tissue may increase their breast cancer risk. This information about the result of the mammogram report was provided to the patient to raise their awareness. Use this report when you speak with the patient about their risks for breast cancer, which includes their family hist ory. At that time, you may recommend for more screening tests (Ultrasound or MRI) as they might be us eful based on their risk. A negative radiographic report should not delay biopsy if a dominant or clinically suspicious mass is present. Up to ten percent of cancers are not identified on mammography. A negative report may reinforce clinical impression. Adenosis and dense breasts may obscure an underlying neoplasm. False positive reports average 6 to 10%. Patient will receive a letter notifying them of these results.
== END ==
PROVIDERS: PCP Nurse Practitioner Family; Visit Provider Nurse Practitioner Family
DX: Z12.39 Encounter for other screening for malignant neoplasm of breast (principal)
CPT/HCPCS: 77063; 77067

== ENCOUNTER 2024-04-27 20:49 | Emergency (ER) | payer BC, SELFPAY ==
[2024-04-27 20:55] VITALS: BP 154/84; PULSE 92; RESP 18; TEMP 36.6; O2SAT 95
--- NOTE | 2024-04-27 21:10 | ED.GENADUL_ITS ---
Discharge Plan Disposition Patient Disposition: Home Condition: Stable Discharge Details Clinical Impression: Encounter for deep vein thrombosis prophylaxis Primary Care Provider: Tabby Enriquez ED Provider: Femi Olson Home Meds and New Rx's Prescriptions: New rivaroxaban 15 mg (42)- 20 mg (9) tablets,dose pack See Rx Instructions .ROUTE .COMPLEX Qty: 51 0RF Rx Instructions: take one-15 mg tablet twice daily for 21 days, then one-20 mg tablet once daily; must take with meal/food Continued levocetirizine [Xyzal] 5 mg tablet 5 mg PO DAILY Qty: 90 3RF Centrum Women 18-400 mg-mcg tablet 1 tab PO DAILY ascorbic acid (vitamin C) 1,000 mg tablet 1 g PO DAILY calcium carbonate-vitamin D2 500-125 mg-unit tablet 2 tab PO DAILY triamcinolone acetonide [Nasacort Allergy] 55 mcg aerosol,spray 1 spray intranasal BID Rx Instructions: administer into each nostril albuterol sulfate 90 mcg/actuation HFA aerosol inhaler 2 puff inhalation QID PRN tirzepatide (weight loss) 7.5 mg/0.5 mL pen injector 7.5 mg subcut QWEEK Qty: 2 1RF Patient Comments: taking 5mg sc at present guanfacine 1 mg tablet 1 mg PO DAILY PRN acetaminophen 500 mg tablet 1,000 mg PO Q8H PRN Qty: 90 0RF Rx Instructions: Take two tablets up to every 8 hours as needed for pain Discontinued aspirin 81 mg tablet,delayed release (DR/EC) 81 mg PO BID 30 Days Qty: 60 0RF celecoxib [Celebrex] 200 mg capsule 200 mg PO BID Qty: 60 0RF Rx Instructions: Take one capsule twice daily for pain and inflammation No Action rivaroxaban 15 mg tablet 15 mg PO BID Qty: 14 0RF Rx Instructions: must administer with evening meal Discharge Instructions Instructions: Rivaroxaban, Deep Vein Thrombosis (DVT) ED Additional Instructions: You were seen in the emergency department for your focal nodular swelling in the distal medial calf and your medial thigh tenderness, your D-dimer is elevated likely falsely elevated from surgery not due to blood clot in your leg regardless we need to start blood thinners. Please discontinue your Celebrex and aspirin, I have sent an oral blood thinner called rivaroxaban to your pharmacy. We started you on this medicine this evening. You need to be extra careful of any trauma due to increased risk of bleeding, any head strike warrants immediate return to the ED for head CT. You need to obtain an outpatient ultrasound on Monday, please continue your blood thinners until receiving a negative ultrasound for any blood clot pathology, if you have superficial clots you can discontinue your oral blood thinner with permission from Dr. Stallworth. and begin treatment for superficial thrombophlebitis Referrals: Tabby Enriquez NP [Primary Care Provider] - J Carlos Stallworth MD [ [facility]FF [facility]YSICIAN] - Discharge Data Discharge Date/Time-TO BE ENTERED AT DEPARTURE: 04/27/24 23:19 HPI General Date/Time Provider Initiated Documentation: 04/27/24 20:55 . HPI Narrative: 63 year-old female presents to ED today by POV/ambulating with a chief complaint of R LE swelling, pain- focal nodularities in medial calf- had R TKA last month- followed by Dr. Stallworth, with onset of pain noted today- took celebrex, aspirin, and Tylenol at 1930. Quality described as painful with dependency, pressure in the leg, difficult to discern medial thigh tendenress from post- operative pain, no radiation to overt diffuse skin changes below the focal nodular swelling, denies inability to ambulate. Severity is described as moderate to severe. Palliating factors include nothing specific attempted. Provoking factors include R TKA April 02. Patient not anticoagulated. Related Data Home Medications Medication Instructions Recorded Confirmed triamcinolone acetonide 55 mcg 1 spray intranasal BID 01/12/23 04/27/24 nasal spray aerosol (Nasacort Allergy) albuterol sulfate 90 mcg/actuation 2 puff inhalation QID PRN 01/13/23 04/27/24 aerosol inhaler ascorbic acid (vitamin C) 1,000 mg 1 g PO DAILY 01/13/23 04/27/24 tablet multivitamin-ferrous 1 tab PO DAILY 01/13/23 04/27/24 fumarate-folic acid 18 mg-400 mcg tablet (Centrum Women) calcium carb-ergocalciferol (vit 2 tab PO DAILY 03/01/23 04/27/24 D2) 500 mg-125 unit tablet levocetirizine 5 mg tablet (Xyzal) 5 mg PO DAILY #90 tabs 03/14/24 04/27/24 tirzepatide (weight loss) 7.5 7.5 mg (0.5 mL) subcut QWEEK #2 mL 03/20/24 04/27/24 mg/0.5 mL subcutaneous pen injector guanfacine 1 mg tablet 1 mg PO DAILY PRN 03/29/24 04/27/24 acetaminophen 500 mg tablet 1,000 mg (2 x 500 mg) PO Q8H PRN 04/02/24 04/27/24 pain #90 tabs rivaroxaban 15 mg (42)-20 mg (9) See Rx Instructions PO .COMPLEX 04/27/24 tablets in a starter pack #51 dose pk rivaroxaban 15 mg tablet 15 mg PO BID #14 tabs 04/28/24 Previous Rx's Medication Instructions Recorded levocetirizine 5 mg tablet (Xyzal) 5 mg PO DAILY #90 tabs 03/14/24 tirzepatide (weight loss) 7.5 7.5 mg (0.5 mL) subcut QWEEK #2 mL 03/20/24 mg/0.5 mL subcutaneous pen injector acetaminophen 500 mg tablet 1,000 mg (2 x 500 mg) PO Q8H PRN 04/02/24 pain #90 tabs rivaroxaban 15 mg (42)-20 mg (9) See Rx Instructions PO .COMPLEX 04/27/24 tablets in a starter pack #51 dose pk rivaroxaban 15 mg tablet 15 mg PO BID #14 tabs 04/28/24 Allergies Allergy/AdvReac Type Severity Reaction Status Date / Time No Known Allergies Allergy Verified 04/27/24 22:03 General Stated Complaint: Vascular CARMENCITA: 3 Review of Systems All systems reviewed & are unremarkable except as noted in HPI and below Exam Narrative Exam Narrative: GENERAL APPEARANCE: Well-nourished, non-toxic, awake and alert, atraumatic, no acute distress. SKIN: Warm, pink, dry, intact, without rashes/lesions/ulcerations. HEAD: Normocephalic, atraumatic, normal hair distribution for gender/age. EYES: Pupils PERRLA, EOMs intact without nystagmus, normal conjunctiva, no exudates on lids/lashes. ENT: Nares patent, no circumoral cyanosis, no facial swelling NECK: Supple, trachea midline, painless cervical ROM. LUNGS/CHEST: Non-labored respirations, normal A/P diameter, symmetrical expansion, no chest wall deformity HEART (CV/PV): Regular rate, no peripheral edema, no JVD. ABDOMEN: Soft, non-distended, no guarding. MSK: Normal ROM, no swelling/deformity to bilateral UEs or LEs, moving all extremities without weakness, no cyanosis, spine midline without tenderness, normal curvature. R LE: 4 x 3 cm area of boggy firm swelling possible superficial thrombophlebitis of the right medial calf with some mild bruising and varicosities, medial thigh tenderness, right dorsalis pedis pulse 2+. NEURO: Mental Status AAOx4 - alert to person, place, time, events No facial droop, no forehead involvement. Motor: No focal weakness - strength 5/5 in bilateral UEs and LEs, proximal and distal, symmetric. Sensory: sensation intact to light touch globally. Gait normal: patient ambulated without ataxia into ED room. PSYCH: euthymic, cooperative, pleasant, appropriate speech Course Vital Signs Vital signs: Vital Signs Temperature 36.6 C 04/27/24 20:55 Pulse 92 H 04/27/24 20:55 Respiratory Rate 18 04/27/24 20:55 Blood Pressure 154/84 H 04/27/24 20:55 Pulse Oximetry 95 04/27/24 20:55 Temperature 36.6 C 04/27/24 20:55 Temperature Source Skin 04/27/24 20:55 Pulse 92 H 04/27/24 20:55 Respiratory Rate 18 04/27/24 20:55 Respiratory Effort Normal, Non-Labored 04/27/24 21:01 Blood Pressure 154/84 H 04/27/24 20:55 Blood Pressure Position Sitting 04/27/24 20:55 Pulse Oximetry 95 04/27/24 20:55 Oxygen Delivery Method Room Air 04/27/24 20:55 Oxygen Flow Rate 0 04/27/24 20:55 Pain Level 2 04/27/24 20:55 Medical Decision Making This dictation utilizes [id number] dictation software and may contain unedited grammatical errors. 63 year-old female presents to ED today by POV/ambulating with a chief complaint of R LE swelling, pain- focal nodularities in medial calf- had R TKA last month- followed by Dr. Stallworth, with onset of pain noted today- took celebrex, aspirin, and Tylenol at 1930. Quality described as painful with dependency, pressure in the leg, difficult to discern medial thigh tendenress from post- operative pain, no radiation to overt diffuse skin changes below the focal nodular swelling, denies inability to ambulate. Severity is described as moderate to severe. Palliating factors include nothing specific attempted. Provoking factors include R TKA April 02. Patients' medical history: Bilateral TKAs, obesity, denies coagulopathy. Family and social history: Has been doing PT postoperatively. Pertinent exam findings / vital signs include 4 x 3 cm area of boggy firm swelling possible superficial thrombophlebitis of the right medial calf with some mild bruising and varicosities, medial thigh tenderness, right dorsalis pedis pulse 2+. Differential / pathologies of concern include superficial thrombophlebitis, deep vein thrombosis, postoperative pain. Diagnostic studies of: -D-[id number]-[id number] -PT/PTT initiated prior to anticoagulation initiation. Interventions of: -Started on DOAC until she can receive an ultrasound on Monday which was ordered as an outpatient with orthopedic follow-up, patient was seen in ED by Dr. Stallworth who is consulting on another patient. ED Course/Assessment/Plan: 63-year-old female presents with some focal nodular swelling in the superficial venous distribution of the right distal medial calf, is neurovascular intact distal to this, has elevated D-dimer, suspicion for DVT as it cannot be ruled out at this time, recommend ultrasound Monday morning, discussed with Dr. Stallworth, reasonable to start DOAC until can be definitively ruled out, started on rivaroxaban, strict return criteria for severe increase in unilateral leg swelling, complete numbness distal to area of pain with severe skin changes like nonblanchable whitening with cool skin. Findings not consistent with severe DVT with gross unilateral leg swelling or diffuse skin changes but reasonable to treat empirically at this time. Disposition of encounter for deep vein thrombosis prophylaxis. Patient verbalized understanding of the plan and return to ED criteria and engaged in shared decision making. Medical Records Medical records reviewed: Yes I reviewed the patient's medical records. Lab Data Lab results reviewed: Yes I reviewed the patient's lab results. Labs: Laboratory Tests Range/Units 04/27/24 04/27/24 21:46 22:58 PT (9.1-11.1) sec 10.3 INR (0.9-1.1) 1.0 APTT (23.6-32.8) sec 28.6 D-Dimer (<500) ng/mlFEU 1967 H Quality:SDAK Health Related Social Needs: No Data to Display PFSH All Active Problems (Updated 04/27/24 @ 22:43 by BARBARA Wheatley) Encounter for deep vein thrombosis prophylaxis (Acute) History of total right knee replacement (Acute 04/02/24) IBS (irritable bowel syndrome) (Chronic) Ventral hernia (Acute) Osteoarthritis (Chronic) Osteopenia (Acute) Varicose veins of legs (Chronic) Right leg Allergic rhinitis (Chronic) Sigmoid diverticulosis (Acute) Obesity, Class III, BMI 40-49.9 (morbid obesity) (Chronic) Medical History (Updated 04/27/24 @ 22:43 by BARBARA Wheatley) BCC (basal cell carcinoma of skin) Migraine Hasn't had for over 20 years since menopause Reactive airway disease Urinary, incontinence, stress female Depression Anemia Surgical History (Updated 04/03/24 @ 08:10 by Denisse Villegas RN) History of total left knee replacement (08/29/23) History of bilateral tubal ligation Hx of spinal fusion (08/30/21) L4-S1 S/P trigger finger release Hx of section History of lateral meniscus repair of right knee Hx of tonsillectomy Hx of laparoscopic gastric banding (07/09/05) has had the band removed History of anterior colporrhaphy (02/13/13) Hx of colonoscopy (09/26/08) Family History (Updated 10/26/23 @ 18:05 by Erin Lerner) Mother , 82 Asthma Hypertension Cancer Hyperlipidemia Heart disease Father , 78 Alcohol use disorder Hypertension Maternal Grandfather Alcohol use disorder Paternal Grandfather No problems noted. Maternal Grandmother Heart disease Breast cancer Hypertension Paternal Grandmother No problems noted. Sister Hypothyroidism Sister Asthma Sister No problems noted. Brother Alcohol use disorder Asthma Brother No problems noted. Son No problems noted. Son , 30 Substance use disorder Social History (Updated 10/26/23 @ 18:02 by Erin Lerner) Smoking/Tobacco Use Status: Never Second Hand Exposure: Yes Smoking risk assessment performed?: Yes Alcohol Intake: current Alcohol Intake frequency: a few times a month Alcohol type: beer Drug use: Never Substance use type: does not use Details: alcohol: t-7, one week Adopted: No Caregiver/Support person: No Foster care: No Household members: family Housing: house Number of Children: 2 Education Level: college Do you need help understanding health information?: Rarely current occupation: RN Pets and animals: No Sexually active: No Do you think of yourself as: straight/heterosexual Current gender identity: female What is your relationship status?: How often do you talk on the phone with friends or family?: three or more times per week How often do you get together with friends or relatives?: three or more times per week How often do you attend restoration or roman catholic services?: 1-3 times per year Do you belong to any clubs or organized social groups?: yes Panel score (0-1 are the most socially isolated patients): 2 What type of physical activity do you participate in: walking Duration: 15-30 minutes/day Frequency: daily Elda/Yazdanism: Buddhist Special elda needs: No Agree to transfusion: Yes Seatbelt use: always Helmet use: Yes Helmet use: always Drive intox or ride w/intox tilt tray driver: No Working smoke detector in home: Yes Carbon monox detector in home: Yes Firearms in home: Yes Firearms unloaded and locked: Yes Do you feel safe at home: Yes Do you feel safe in your relationship?: Yes Victim of physical abuse: No Victim of emotional abuse: No Victim of sexual abuse: No Would you like helpful sources: No Additional Social history: lives alone
[2024-04-27 21:55] VITALS: RESP 18
[2024-04-27 22:36] LABS: D-Dimer 1967 ng/mlFEU (<500)
[2024-04-27] MEDS: Rivaroxaban 15 MG TABLET PO (23:10)
[2024-04-27 23:15] LABS: PTT Activated 28.6 sec (23.6-32.8); Prothrombin Time 10.3 sec (9.1-11.1)
[2024-04-27 23:19] VITALS: BP 130/75; PULSE 78; RESP 16; TEMP 36.6; O2SAT 96
--- NOTE | 2024-04-29 08:39 | NUR.NOTE ---
Accessed Pt chart to check to see if Pt was referred to obtain an Ultrasound Monday morning. Femi Olson wrote in his note that she was to do so. I asked Elizabeth Archuleta if she would write a referral so I can fax it to the DI dept and they can schedule the Pt. This was completed and referral was faxed.
== END 2024-04-27 23:19 | disposition home or self-care (01) ==
PROVIDERS: Emergency Provider Physician Assistant; PCP Nurse Practitioner Family
DX: M79.661 Pain in right lower leg (principal); R22.41 Localized swelling, mass and lump, right lower limb; Z98.890 Other specified postprocedural states; Z96.651 Presence of right artificial knee joint
CPT/HCPCS: 36415; 99283; 85379; 85610; 85730

== ENCOUNTER 2024-05-13 15:30 | Outpatient (CLI) | payer BC, SELFPAY ==
--- NOTE | 2024-05-13 11:15 | DI.RAD_ITS ---
Exam(s) XR KNEE RT 1V XR STANDING ALIGNMENT EXAM: XR STANDING ALIGNMENT CLINICAL HISTORY: eval R TKA. TECHNIQUE: 2D digital imaging was performed. Five images were obtained. COMPARISON: CR XR STANDING ALIGNMENT from 09/11/2023 CR XR KNEE RT 1V from 05/13/2024 FINDINGS: BONES: The hips are well maintained. There are bilateral total knee replacements. No evidence of willson rdware failure is seen. The recently placed right total knee replacement is in good position. No watson spicious lucencies are seen in or about the orthopedic hardware. The ankles are well maintained.Ther e is no significant leg length discrepancy. SOFT TISSUE: Normal. IMPRESSION: Stable bilateral total knee replacements. DATA REPOSITORY: RADIATION DOSE DELIVERED:
== END 2024-05-13 15:31 | disposition home or self-care (01) ==
LOC: DIORS 15:31
PROVIDERS: PCP Nurse Practitioner Family; Visit Provider Student in an Organized Health Care Education/Training Program
DX: Z96.651 Presence of right artificial knee joint (principal)
CPT/HCPCS: 73560; 77073

== ENCOUNTER 2024-10-30 13:56 | Outpatient (REF) | payer BC, SELFPAY ==
--- NOTE | 2024-10-30 07:30 | PAPFT_PTH ---
PATIENT: Tressa Wallace LOC: [facility] U#:[id number] AGE/SX: 63/F ROOM: RE10/30/[address]: JAEL Umana : 1960 BED: DIS: 10/30/2024 SPEC #: [id number] RECD: 10/30/24 17:36 STATUS: EMILI CAROL[place] #: [id number] KRYSTAL: 10/30/24 07:[address]: Tabby Enriquez DEPT: [facility] Cytology RECD BY: Jackelyn Rodriguez Tissues: 1 - CX/ENDOCX FOR PAP SMEARS Procedures: PAP THIN PREP/UVM Screening HPV DNA PROBE Comments: [id number]
== END 2024-10-30 13:57 | disposition home or self-care (01) ==
LOC: LBN 13:56
PROVIDERS: PCP Nurse Practitioner Family; Visit Provider Nurse Practitioner Family
DX: Z00.00 Encounter for general adult medical examination without abnormal findings (principal); Z23 Encounter for immunization; Z12.39 Encounter for other screening for malignant neoplasm of breast; Z11.59 Encounter for screening for other viral diseases; Z11.4 Encounter for screening for human immunodeficiency virus [HIV]; E66.01 Morbid (severe) obesity due to excess calories; M81.0 Age-related osteoporosis without current pathological fracture; J32.9 Chronic sinusitis, unspecified
CPT/HCPCS: 88142; 87624

== ENCOUNTER 2024-10-31 05:04 | Outpatient (CLI) | payer BC, SELFPAY ==
[2024-10-31 16:56] LABS: Anion Gap 6.2 mmol/L (3-11); BUN 19 mg/dL (7-18); CO2 28.8 mmol/L (21.0-32.0); CREATININE 0.9 mg/dL (0.55-1.02); Calcium 9.7 mg/dL (8.5-10.1); Chloride 103 mmol/L (98-107); Estimated GFR 71.83 (mL/min/1.73m2); Glucose 88 mg/dL (74-106); Potassium 4.2 mmol/L (3.5-5.1); Sodium 138 mmol/L (136-145)
[2024-11-01 19:23] LABS: HBs Antibody, Quant 57.4 mIU/mL (See Note); Hep B Surface Ab Positive (See Note); Hepatitis B Core Antibody Negative (Negative); Hepatitis B Surface Antigen Negative (Negative)
[2024-11-01 19:27] LABS: HIV-1/2 Ag & Ab Screen Negative (Negative)
== END 2024-10-31 05:05 | disposition home or self-care (01) ==
LOC: LBO 05:04
PROVIDERS: PCP Nurse Practitioner Family; Visit Provider Nurse Practitioner Family
DX: Z00.00 Encounter for general adult medical examination without abnormal findings (principal); Z11.4 Encounter for screening for human immunodeficiency virus [HIV]; Z11.59 Encounter for screening for other viral diseases; Z23 Encounter for immunization; Z12.39 Encounter for other screening for malignant neoplasm of breast; E66.01 Morbid (severe) obesity due to excess calories; M81.0 Age-related osteoporosis without current pathological fracture; J32.9 Chronic sinusitis, unspecified
CPT/HCPCS: 36415; 80048; 86704; 86706; 87340; 87389

== ENCOUNTER 2025-03-25 20:27 | Emergency (ER) | payer BC, SELFPAY ==
[2025-03-25 20:29] VITALS: BP 133/78; PULSE 102; RESP 20; TEMP 36.7; O2SAT 94
[2025-03-25 20:46] VITALS: BP 133/78; PULSE 102; RESP 20; TEMP 36.7; O2SAT 94
--- NOTE | 2025-03-25 20:49 | DI.RAD_ITS ---
Exam(s) XR CHEST 2V PA LATERAL EXAM: XR CHEST 2V PA LATERAL CLINICAL HISTORY: Cough, SOB TECHNIQUE: 2D digital imaging was performed of the chest. Two images were obtained. PA and lateral views were obtained. COMPARISON: CT CT CHEST WO from 03/25/2025 FINDINGS: Patient is slightly rotated. MEDIASTINUM: Normal. HEART: Normal. PULMONARY VASCULATURE: Normal. There is tortuosity of the thoracic aorta. LUNGS: No focal consolidating infiltrates are present. PLEURAL SPACE: No pleural effusion or pneumothorax. BONE:Within normal limits for the patient's age. There appears to be partial resection of the distal left clavicle. There is elevation of the clavicle relative to the acromion. OTHER FINDINGS:Normal. IMPRESSION: 1. No focal consolidating infiltrates. 2. Resorption or resection of the distal left clavicle. Left AC joint dislocation which may be chron ic. Please correlate clinically. 3. The preliminary [facility] report was reviewed. DATA REPOSITORY: RADIATION DOSE DELIVERED:
--- NOTE | 2025-03-25 20:57 | DI.[facility]AD_ITS ---
PROCEDURE INFORMATION: Exam: XR Chest Exam date and time: 03/25/2025 8:49 PM Age: 64 years old Clinical indication: Cough and shortness of breath TECHNIQUE: Imaging protocol: Radiologic exam of the chest. Views: 2 views. COMPARISON: CT ABDOMEN PELVIS W 02/15/2023 10:21 AM FINDINGS: Lungs: No airspace consolidation. Pleural spaces: No pleural effusion. No pneumothorax. Heart/Mediastinum: There is increased fullness at the right hilum. The heart and mediastinum are otherwise unremarkable. Bones/joints: Bones and soft tissues have a normal appearance. IMPRESSION: 1. No focal airspace consolidation. 2. Questionable right hilar mass versus prominence of the pulmonary vasculature. Comparison with prior studies could be used to further characterize this finding. Alternatively, CT of the chest could be used to exclude hilar mass. Dictated and Authenticated by: Ruth Egan MD. Orderin Kathe Johnson MD
--- NOTE | 2025-03-25 21:00 | DI.CT_ITS ---
Exam(s) CT CHEST WO EXAM: CT CHEST WO CLINICAL HISTORY: Question hilar mass, SOB COUGH. TECHNIQUE: Imaging protocol: Axial computed tomography images were obtained and coronal and sagittal reformatted images were created and reviewed. Lung Computer Aided Detection (CAD) was utilized. COMPARISON: CT CT ABDOMEN PELVIS W from 02/15/2023 CR,XR XR CHEST 2V PA LATERAL from 03/25/2025 FINDINGS: Tracheobronchial tree: Patent where visualized. No bronchiectasis is present. Pulmonary parenchyma: There is a small reticular nodular infiltrate in the superior segment of the le ft lower lobe. Calcified granuloma are present. There are few scattered noncalcified pulmonary nodu les. There is a 3 mm nodule in the left lower lobe (series 2, image 76). There is a 4 mm nodule in the right lower lobe (series 2, image 91). There is no evidence of a pulmonary mass. Mediastinum and Ruby: No dominant adenopathy or fluid collection. The esophagus is unremarkable. Thyroid gland: Unremarkable. Pleura: No effusion or pneumothorax. Heart: The heart is not dilated. No coronary artery calcifications are seen. No pericardial effusion. Aorta: The ascending thoracic aorta measures 4.1 by 3.7 cm. Mild atherosclerotic calcification is pr esent. Upper abdomen: There is a cyst again seen in the right lobe of the liver. Lymph nodes: Within normal limits. Soft tissues: Unremarkable. Bones:Within normal limits for the patient's age. IMPRESSION: 1. No evidence of a pulmonary or mediastinal mass. 2. Small reticular nodular infiltrate in the superior segment of the left lower lobe. Infection or i nflammation should be considered. Please correlate clinically. 3. A few scattered pulmonary nodules. The largest measures 4 mm and is located in the right lower lo be. Solid nodules smaller than 6 mm do not require routine follow-up in all patients with high clinical r isk; however, some nodules smaller than 6 mm with suspicious morphology, upper lobe location, or both may warrant follow-up at 12 months (grade 2A; weak recommendation, high-quality evidence). (Leticia et al., 2017) Single solid noncalcified nodules. ???Solid nodules smaller than 6 mm (those 5 mm or smaller) do not require routine follow-up in patients at low risk (grade 1C; strong recommendation, low- or very-low- quality evidence). (Leticia et al., 2017) 4. The preliminary [facility] report was reviewed. Unexpected findings RADIATION DOSE DELIVERED: 266.04mGy.cm Total DLP 266.04mGy.cm Total DLP DATA REPOSITORY: All CT scans at this facility are submitted to the National Radiology Data Registry (NRDR) Dose Index Registry (DIR) with the [employer] (ACR). RADIATION OPTIMIZATION: All CT scans at this facility use at least one of these dose optimization te chniques: automated exposure control; mA and/or kV adjustment per patient size (includes targeted exa ms where dose is matched to clinical indication); or iterative reconstruction.
--- NOTE | 2025-03-25 21:17 | W.ED.GENAD ---
Discharge Plan Disposition Patient Disposition: Home Condition: Stable Discharge Details Clinical Impression: Pneumonia Primary Care Provider: Tabby Enriquez ED Provider: Elizabeth Archuleta Home Meds and New Rx's Prescriptions: New doxycycline hyclate 100 mg capsule 100 mg PO BID 10 Days Qty: 20 0RF Rx Instructions: Please take 1 capsule twice daily for the next 10 days prednisone 50 mg tablet 50 mg PO DAILY 5 Days Qty: 5 0RF Rx Instructions: Take 1 tablet daily for the next 5 days Continued Centrum Women 18-400 mg-mcg tablet 1 tab PO DAILY ascorbic acid (vitamin C) 1,000 mg tablet 1 g PO DAILY calcium carbonate-vitamin D2 500-125 mg-unit tablet 2 tab PO DAILY vitamin E (dl, acetate) 450 mg (1,000 unit) capsule 450 mg PO DAILY celecoxib [Celebrex] 200 mg capsule 200 mg PO DAILY PRN (Reason: pain) Qty: 90 3RF levocetirizine [Xyzal] 5 mg tablet 5 mg PO DAILY Qty: 90 3RF triamcinolone acetonide [Nasacort Allergy] 55 mcg aerosol,spray 1 - 2 spray intranasal DAILY PRN (Reason: allergy symptoms) Qty: 16.9 3RF tirzepatide (weight loss) 15 mg/0.5 mL pen injector 15 mg subcut QWEEK Qty: 8 3RF albuterol sulfate 90 mcg/actuation HFA aerosol inhaler 2 puff inhalation QID PRN (Reason: shortness of breath or wheezing) Qty: 8.5 1RF guanfacine 1 mg tablet 1 mg PO DAILY PRN Discharge Instructions Instructions: Pneumonia, Adult ED Additional Instructions: At this time x-ray and CT imaging show that you have left lower lobe pneumonia. Please take the antibiotics with yogurt or a probiotic as directed. Take them twice daily for the next 10 days. Continue to use your albuterol inhaler 1 or 2 puffs every 4-6 hours as needed for wheezing and shortness of breath. Take the prednisone tablets once a day for the next 5 days as directed. Follow up with primary care provider in 3-5 days. Return to ED sooner if any worsening chest pain, shortness of breath, no improvement after the medications or concerns. Please take Tylenol or Ibuprofen with food every 4-6 hours as needed for pain and swelling. Referrals: AdjTabby neri NP [Primary Care Provider] - 5 days HPI General Mode of arrival: ambulatory. Date/Time Provider Initiated Documentation: 03/25/25 20:35. Limitations to Documentation: no limitations. Information obtained by: patient, RN notes reviewed and old records reviewed. HPI Narrative: 64-year-old female presents to the ER with a chief complaint of cough, headache for the last 5 days and URI type symptoms. Patient states that she does have a productive cough with yellow and white sputum. She is having bilateral lower rib pain with coughing. She has taken Tylenol and used a hand-held albuterol inhaler prior to arrival. She attributes this to seasonal allergies. She also states I feel like I am drowning. On exam she does have scattered wheezes bilaterally. Related Data Home Medications ?Medication ?Instructions ?Recorded ?Confirmed ascorbic acid (vitamin C) 1,000 mg 1 g PO DAILY 01/13/23 03/25/25 tablet multivitamin-ferrous 1 tab PO DAILY 01/13/23 03/25/25 fumarate-folic acid 18 mg-400 mcg tablet (Centrum Women) calcium carb-ergocalciferol (vit 2 tab PO DAILY 03/01/23 03/25/25 D2) 500 mg-125 unit tablet guanfacine 1 mg tablet 1 mg PO DAILY PRN 03/29/24 03/25/25 tirzepatide (weight loss) 15 15 mg (0.5 mL) subcut QWEEK #8 mL 09/09/24 03/25/25 mg/0.5 mL subcutaneous pen injector Celebrex 200 mg capsule (celecoxib) 200 mg PO DAILY PRN pain #90 caps 10/30/24 03/25/25 levocetirizine 5 mg tablet (Xyzal) 5 mg PO DAILY #90 tabs 10/30/24 03/25/25 triamcinolone acetonide 55 mcg 1 - 2 spray intranasal DAILY PRN 10/30/24 03/25/25 nasal spray aerosol (Nasacort allergy symptoms #16.9 mL Allergy) vitamin E (dl, acetate) 450 mg 450 mg PO DAILY 10/30/24 03/25/25 (1,000 unit) capsule albuterol sulfate 90 mcg/actuation 2 puff inhalation QID PRN 02/06/25 03/25/25 aerosol inhaler shortness of breath or wheezing #8.5 grams doxycycline hyclate 100 mg capsule 100 mg PO BID Pneumonia 10 days 03/25/25 #20 caps prednisone 50 mg tablet 50 mg PO DAILY Inflammation 5 days 03/25/25 #5 tabs Previous Rx's ?Medication ?Instructions ?Recorded tirzepatide (weight loss) 15 15 mg (0.5 mL) subcut QWEEK #8 mL 09/09/ mg/0.5 mL subcutaneous pen injector Celebrex 200 mg capsule (celecoxib) 200 mg PO DAILY PRN pain #90 caps 10/30/24 levocetirizine 5 mg tablet (Xyzal) 5 mg PO DAILY #90 tabs 10/30/24 triamcinolone acetonide 55 mcg 1 - 2 spray intranasal DAILY PRN 10/30/24 nasal spray aerosol (Nasacort allergy symptoms #16.9 mL Allergy) albuterol sulfate 90 mcg/actuation 2 puff inhalation QID PRN 02/06/25 aerosol inhaler shortness of breath or wheezing #8.5 grams doxycycline hyclate 100 mg capsule 100 mg PO BID Pneumonia 10 days 03/25/25 #20 caps prednisone 50 mg tablet 50 mg PO DAILY Inflammation 5 days 03/25/25 #5 tabs Allergies Allergy/AdvReac Type Severity Reaction Status Date / Time No Known Allergies Allergy Verified 03/25/25 20:32 General Stated Complaint: RespSymp CARMENCITA: 3 Review of Systems All systems reviewed & are unremarkable except as noted in HPI and below Constitutional Constitutional: Reports as per HPI Cardiovascular Cardiovascular: Reports dyspnea Respiratory Respiratory: Reports change in phlegm color, Reports cough, Reports excessive phlegm production, Reports pain with cough, Reports dyspnea and Reports wheezing Allergic/Immunologic Allergic/Immunologic: Reports wheezing Exam Narrative Exam Narrative: Constitutional: Alert and oriented x3. Appears stated age. Normal body habitus. Head: Normocephalic, no trauma. Eyes: Pupils PERRL, Red reflex noted, EOM's intact. Eyelids symmetrical without lesions, discharge, or swelling. ENT: Bilateral TM's WNL, External ear normal to inspection, no mastoid TTP, swelling, or erythema, Nasal turbinates WNL, no nasal discharge. Normal dentition, Posterior pharynx WNL, no exudate. Chest: RRR, Normal S1, S2, distal pulses intact. Resp: Bilateral wheezes auscultated, worse on the left. Abdomen: Soft, non-distended, Normoactive bowel sounds all 4 quads. Musculoskeletal: Normal gait, Moves all 4 extremities without difficulty. Skin: No suspicious rashes or lesions. Capillary refill less than 2 sec. Neurologic: Cranial nerves II-XII intact. Alert and oriented x 3. Motor: No deficits noted. Sensory: Intact bilaterally all 4 extremities. Hematologic/Lymphatic: No ecchymosis, no lymphadenopathy. Course Vital Signs Vital signs: Vital Signs Temperature 36.7 C 03/25/25 20:29 Pulse 102 H 03/25/25 20:29 Respiratory Rate 20 03/25/25 20:29 Blood Pressure 133/78 03/25/25 20:29 Pulse Oximetry 94 03/25/25 20:29 Temperature 36.7 C 03/25/25 20:46 Temperature Source Oral 03/25/25 20:46 Pulse 102 H 03/25/25 20:46 Respiratory Rate 20 03/25/25 20:46 Respiratory Effort Normal 03/25/25 20:46 Respiratory Depth Normal 03/25/25 20:46 Blood Pressure 133/78 03/25/25 20:46 Blood Pressure Position Sitting 03/25/25 20:46 Pulse Oximetry 94 03/25/25 20:46 Oxygen Delivery Method Room Air 03/25/25 20:46 Oxygen Flow Rate 0 03/25/25 20:46 Medical Decision Making 64-year-old female presents to the ER with a chief complaint of cough, headache for the last 5 days and URI type symptoms. Patient states that she does have a productive cough with yellow and white sputum. She is having bilateral lower rib pain with coughing. She has taken Tylenol and used a hand-held albuterol inhaler prior to arrival. She attributes this to seasonal allergies. She also states I feel like I am drowning. On exam she does have scattered wheezes bilaterally. Fluvid swab ordered, chest x-ray 60 mg prednisone p.o. and a DuoNeb. X-ray shows no focal airspace consolidation however there is a questionable right hilar mass versus prominence of the pulmonary vasculature. Radiologist is recommending a chest CT to exclude hilar mass. CT chest without contrast ordered. CT chest shows lower lobe airspace opacity suspicious for infection. Will treat for pneumonia with doxycycline. Prescription for prednisone. Discussed strict turn instructions. Negative for COVID flu RSV. 2203: On patient reevaluation she does sound much more open, wheezing has decreased. Will give an additional albuterol/ipratropium nebulizer. Will start her on 100 mg of doxycycline twice daily. Discussed imaging results with her she verbalized understanding and is in agreement with the plan of care. Patient discharged in hemodynamically stable condition. O2 sat on discharge 97% on room air. Heart rate has decreased. Discussed strict return instructions she verbalized understanding. This text was generated using [employer]ormed[employer]ation system, please disregard any oddities of phrase or misspellings. Imaging Data Radiologic Study: Imaging: X-Ray Radiologist's impression: Age: 64 years old Clinical indication: Cough and shortness of breath TECHNIQUE: Imaging protocol: Radiologic exam of the chest. Views: 2 views. COMPARISON: CT ABDOMEN PELVIS W 02/15/2023 10:21 AM FINDINGS: Lungs: No airspace consolidation. Pleural spaces: No pleural effusion. No pneumothorax. Heart/Mediastinum: There is increased fullness at the right hilum. The heart and mediastinum are otherwise unremarkable. Bones/joints: Bones and soft tissues have a normal appearance. IMPRESSION: 1. No focal airspace consolidation. 2. Questionable right hilar mass versus prominence of the pulmonary vasculature. Comparison with prior studies could be used to further characterize this finding. Alternatively, CT of the chest could be used to exclude hilar mass. Thank you for allowing us to participate in the care of your patient. Dictated and Authenticated by: Ruth Egan MD Radiologic Study #2: Imaging: CT Scan Radiologist's impression: COMPARISON: CR XR CHEST 2V PA LATERAL 03/25/2025 8:49 PM FINDINGS: Lungs: There is mild centrilobular emphysema with an apical predominance. Trace patchy airspace opacities are present within the posterior medial aspect of the left lower lobe. The lungs are otherwise clear. Pleural spaces: No pleural effusion or pneumothorax. Heart: Unremarkable. No cardiomegaly. No pericardial effusion. Lymph nodes: No enlarged lymph nodes. Vasculature: Unremarkable. No aortic aneurysm. Bones/joints: Bones have a normal appearance. No acute fracture or suspicious bone lesion. Soft tissues: Unremarkable. IMPRESSION: 2 Trace left lower lobe airspace opacities suspicious for infection or aspiration. Short interval follow-up is recommended to exclude underlying pulmonary pathology. Thank you for allowing us to participate in the care of your patient. Dictated and Authenticated by: Ruth Egan MD Lab Data Lab results reviewed: Yes I reviewed the patient's lab results. Labs: Laboratory Tests Range/Units 03/25/25 20:41 COVID-19 Source Nasopharynx SARS-CoV-2 (PCR) (Negative) Negative Influenza Type A (PCR) (Negative) Negative Influenza Type B (PCR) (Negative) Negative RSV (PCR) (Negative) Negative Quality:SDOH Health Related Social Needs: Health related social needs problems related to housing/economic circumstances (Z59.89), feeling lonely/isolated (Z60.8) PFSH All Active Problems (Updated 03/25/25 @ 22:07 by Elizabeth Archuleta NP) Pneumonia (Acute) IBS (irritable bowel syndrome) (Chronic) Osteoarthritis (Chronic) Obesity, Class III, BMI 40-49.9 (morbid obesity) (Chronic) Osteoporosis (Chronic) Osteopenia (Chronic) Varicose veins of legs (Chronic) Right leg Allergic rhinitis (Chronic) Ventral hernia (Chronic) Sigmoid diverticulosis (Chronic) Medical History (Updated 03/25/25 @ 22:07 by Elizabeth Archuleta NP) Cervical high risk HPV (human papillomavirus) test positive Repeat pap 2025 BCC (basal cell carcinoma of skin) Migraine Hasn't had for over 20 years since menopause Reactive airway disease Urinary, incontinence, stress female Depression Anemia Surgical History History of total right knee replacement (04/02/24) History of total left knee replacement (08/29/23) History of bilateral tubal ligation Hx of spinal fusion (08/30/21) L4-S1 S/P trigger finger release Left 4th finger Hx of section History of lateral meniscus repair of right knee Hx of tonsillectomy Hx of laparoscopic gastric banding (07/09/05) has had the band removed History of anterior colporrhaphy (02/13/13) Hx of colonoscopy Family History Mother , 82 Asthma Hypertension Cancer Hyperlipidemia Heart disease Father , 78 Alcohol use disorder Hypertension Maternal Grandfather Alcohol use disorder Paternal Grandfather No problems noted. Maternal Grandmother Heart disease Breast cancer Hypertension Paternal Grandmother No problems noted. Sister Hypothyroidism Sister Asthma Sister No problems noted. Brother Alcohol use disorder Asthma Brother No problems noted. Son No problems noted. Son , 30 Substance use disorder Social History Smoking/Tobacco Use Status: Never Second Hand Exposure: Yes Smoking risk assessment performed?: Yes Alcohol Intake: current Alcohol Intake frequency: a few times a month Alcohol type: beer Drug use: Never Substance use type: does not use Details: alcohol: t-7, one week Adopted: No Caregiver/Support person: No Foster care: No Household members: family Housing: house Number of Children: 2 Education Level: college Do you need help understanding health information?: Rarely current occupation: RN Pets and animals: No Sexually active: No Do you think of yourself as: straight/heterosexual Current gender identity: female What is your relationship status?: How often do you talk on the phone with friends or family?: three or more times per week How often do you get together with friends or relatives?: three or more times per week How often do you attend gnosticist or methodist services?: 1-3 times per year Do you belong to any clubs or organized social groups?: yes Panel score (0-1 are the most socially isolated patients): 2 What type of physical activity do you participate in: walking Duration: 15-30 minutes/day Frequency: daily Elda/Religious: Quaker Special elda needs: No Agree to transfusion: Yes Seatbelt use: always Helmet use: Yes Helmet use: always Drive intox or ride w/intox dray driver: No Working smoke detector in home: Yes Carbon monox detector in home: Yes Firearms in home: Yes Firearms unloaded and locked: Yes Do you feel safe at home: Yes Do you feel safe in your relationship?: Yes Victim of physical abuse: No Victim of emotional abuse: No Victim of sexual abuse: No Would you like helpful sources: No Additional Social history: lives alone History History 3 Para 2 Hx # Term Pregnancies Multiple births Hx # Pregnancies Ectopic pregnancies AB induced Hx Number of Living Children AB spontaneous 1 Past Pregnancies Del. Date GA/Weeks # Preg Succ Route Wgt Sex Labor Lgth Anesthesia Location [facility] 10/23/87 40 No Yes 3770.487 g Male 10/23/89 41 No Yes vaginal 3175.147 g Male Delivery Date: 10/23/87 Last Updated by: Gayle Smith unsure of exact birthdate Delivery Date: 10/23/89 Last Updated by: Gayle Smith unsure of exact birthdate
[2025-03-25 21:23] LABS: COVID-19 PCR Negative (Negative); Influenza A PCR Negative (Negative); Influenza B PCR Negative (Negative); RSV PCR Negative (Negative)
[2025-03-25 21:24] LABS: Source Nasopharynx
[2025-03-25] MEDS: predniSONE 20 MG TAB 60 MG PO (21:44)
[2025-03-25] MEDS: Albuterol/Ipratropium 3 ML UPD VIAL UPD ×2 (21:44→22:07)
--- NOTE | 2025-03-25 21:46 | DI.VRAD_ITS ---
PROCEDURE INFORMATION: Exam: CT Chest Without Contrast; Diagnostic Exam date and time: 03/25/2025 9:25 PM Age: 64 years old Clinical indication: Abnormal findings; Abnormal radiologic exam of lung or chest; Question hilar mass, SOB cough TECHNIQUE: Imaging protocol: Diagnostic computed tomography of the chest without contrast. 3D rendering (Not supervised by radiologist): MIP and/or 3D reconstructed images were created by the technologist. Radiation optimization: All CT scans at this facility use at least one of these dose optimization techniques: automated exposure control; mA and/or kV adjustment per patient size (includes targeted exams where dose is matched to clinical indication); or iterative reconstruction. COMPARISON: CR XR CHEST 2V PA LATERAL 03/25/2025 8:49 PM FINDINGS: Lungs: There is mild centrilobular emphysema with an apical predominance. Trace patchy airspace opacities are present within the posterior medial aspect of the left lower lobe. The lungs are otherwise clear. Pleural spaces: No pleural effusion or pneumothorax. Heart: Unremarkable. No cardiomegaly. No pericardial effusion. Lymph nodes: No enlarged lymph nodes. Vasculature: Unremarkable. No aortic aneurysm. Bones/joints: Bones have a normal appearance. No acute fracture or suspicious bone lesion. Soft tissues: Unremarkable. IMPRESSION: Trace left lower lobe airspace opacities suspicious for infection or aspiration. Short interval follow-up is recommended to exclude underlying pulmonary pathology. Dictated and Authenticated by: Ruth Egan MD. Orderin Kathe Johnson MD
[2025-03-25] MEDS: Doxycycline Hyclate 100 MG, 2 CAPS/BTL PO (22:07)
[2025-03-25] MEDS: Doxycycline Hyclate 100 MG CAP PO (22:07)
[2025-03-25 22:23] VITALS: BP 142/78; PULSE 98; RESP 20; O2SAT 97
== END 2025-03-25 22:27 | disposition home or self-care (01) ==
PROVIDERS: Emergency Provider Registered Nurse Emergency; PCP Nurse Practitioner Family
DX: J18.9 Pneumonia, unspecified organism (principal); Z98.1 Arthrodesis status
CPT/HCPCS: 71250; 87637; 94640; 99284; 71046; J7512; J7620

== ENCOUNTER 2025-04-04 21:00 | Outpatient (CLI) | payer BC, SELFPAY ==
--- NOTE | 2025-04-04 18:30 | DI.RAD_ITS ---
Exam(s) XR CHEST 2V PA LATERAL EXAM: XR CHEST 2V PA LATERAL CLINICAL HISTORY: cough, known pneumonia, monitor J18.9. TECHNIQUE: 2D digital imaging was performed. COMPARISON: CT CT CHEST WO from 03/25/2025 CR,XR XR CHEST 2V PA LATERAL from 03/25/2025 FINDINGS: 2 views: Heart size is normal. The mediastinum is not widened. Lungs are clear. No infiltrates nor pleural effusions. Mildly elevated left hemidiaphragm again noted. IMPRESSION: No acute pulmonary findings on plain film chest x-ray. However, please note that recent CT scan of 03/25/2025 revealed subtle mild infiltrate in the superior segment of the left lower lobe which is too faint to be appreciated on plain film which were performed the same date 03/25/2025..Basically this infiltrate in the superior segment of the left lower lobe is only able to be seen on CT scan Preliminary virtual Radiology report was reviewed DATA REPOSITORY: RADIATION DOSE DELIVERED:
--- NOTE | 2025-04-04 19:19 | DI.VRAD_ITS ---
PROCEDURE INFORMATION: Exam: XR Chest Exam date and time: 04/04/2025 18:45 Age: 64 years old Clinical indication: Other: Cough, known pneumonia, monitor TECHNIQUE: Imaging protocol: Radiologic exam of the chest. Views: 2 views. COMPARISON: CT CHEST WO 03/25/2025 21:25 FINDINGS: Lungs: No significant pneumonia appreciated radiographically. No airspace consolidation. Pleural spaces: No pleural effusion. No pneumothorax. Heart/Mediastinum: No cardiomegaly. Vasculature: Tortuous aorta. Bones/joints: No acute fracture. IMPRESSION: No significant pneumonia appreciated radiographically. Dictated and Authenticated by: Pamela Gonzalez MD. Orderin Jesus Meadows MD
== END 2025-04-04 21:20 ==
LOC: DI 21:00
PROVIDERS: PCP Nurse Practitioner Family; Visit Provider Physician Assistant
DX: J18.9 Pneumonia, unspecified organism (principal)
CPT/HCPCS: 71046

== ENCOUNTER 2025-04-07 15:21 | Outpatient (CLI) | payer BC, SELFPAY ==
--- NOTE | 2025-04-07 15:14 | DI.RAD_ITS ---
Exam(s) XR KNEE RT 2V AP,LAT EXAM: XR KNEE RT 2V AP,LAT INDICATION: ANNUAL F/U R TKA. COMPARISON: CR XR KNEE RT 1V from 05/13/2024 TECHNIQUE: 2D digital imaging was performed. Two views. FINDINGS: Is stable alignment of the total knee prosthesis. No abnormal surrounding lucencies. DATA REPOSITORY: RADIATION DOSE DELIVERED:
== END 2025-04-07 15:22 | disposition home or self-care (01) ==
LOC: DIORS 15:21
PROVIDERS: PCP Nurse Practitioner Family; Referring Provider Nurse Practitioner Family; Visit Provider Student in an Organized Health Care Education/Training Program
DX: Z96.651 Presence of right artificial knee joint (principal)
CPT/HCPCS: 73560

== ENCOUNTER 2025-04-21 01:28 | Outpatient (CLI) | payer BC, SELFPAY ==
--- NOTE | 2025-04-21 06:30 | DI.MAMMO_ITS ---
Exam(s) MAMMO SCREENING EXAM: MAMMO SCREENING CLINICAL HISTORY: screening,z12.39 TECHNIQUE: Mammograms were interpreted according to the usual protocol including computer analysis with CAD system, tomosynthesis and C-view imaging. COMPARISON: 2018 through 2023 FINDINGS: The breasts are composed of mainly fatty density , Breast Density category A. No suspicious masses or suspicious microcalcifications are seen. No skin thickening or abnormal axillary lymph nodes are seen. There has been no significant change from prior exams. IMPRESSION: BI-RADS Category 1, Negative mammogram Yearly screening mammography is recommended. Breast Density- Category A - The breast are almost entirely fatty. Breast density Category C or D implies that the patient has dense breast tissue. Dense breast tissue can make it harder to find cancer on a mammogram. Dense breast tissue is also associated with an increased risk of breast cancer. This information about the result of the mammogram report was provided to the patient to raise their awareness. Use this report when you speak with the patient about their risks for breast cancer, which includes their family history. At that time, you may recommend additional screening tests (Ultrasound or MRI) as these tests may add significant information. A negative radiographic report should not delay biopsy if a dominant or clinically suspicious mass is present. Up to ten percent of cancers are not identified on mammography. A negative report may reinforce clinical impression. Adenosis and dense breasts may obscure an underlying neoplasm. False positive reports average 6 to 10%. Patient will receive a letter notifying them of these results.
== END 2025-04-21 01:48 ==
LOC: DI 01:28
PROVIDERS: PCP Nurse Practitioner Family; Visit Provider Nurse Practitioner Family
DX: Z12.31 Encounter for screening mammogram for malignant neoplasm of breast (principal); R92.313 Mammographic fatty tissue density, bilateral breasts
CPT/HCPCS: 77063; 77067

== ENCOUNTER 2025-10-13 01:26 | Outpatient (CLI) | payer BC, SELFPAY ==
[2025-10-13 09:22] LABS: Anion Gap 7.1 mmol/L (3-11); BUN 18 mg/dL (9-23); CO2 27.9 mmol/L (20.0-31.0); Calcium 9.0 mg/dL (8.3-10.6); Chloride 110 mmol/L (98-107); Cholesterol 155 mg/dL (<200); Glucose 79 mg/dL (74-106); HDL Cholesterol 54 mg/dL (>or=50); Potassium 4.3 mmol/L (3.5-5.1); Sodium 145 mmol/L (136-145)
== END 2025-10-13 01:27 | disposition home or self-care (01) ==
LOC: LBO 01:26
PROVIDERS: PCP Nurse Practitioner Family; Visit Provider Nurse Practitioner Family
DX: E66.9 Obesity, unspecified (principal)
CPT/HCPCS: 36415; 80048; 80061